=== PATIENT | male | born 1955 | race Caucasian/White ===

== ENCOUNTER 2022-03-13 13:50 | Inpatient (IN) | payer MEDICARE, OTHER, SELFPAY ==
[2022-03-13] VITALS (30 sets, daily range): BP systolic 84–134; BP diastolic 50–89; PULSE 70–164; RESP 18–30; TEMP 36.3–36.9; O2SAT 92–98
--- NOTE | 2022-03-13 14:29 | ECG_ITS ---
[facility] Test Date: 2022-03-13 Pat Name: Julian Lundy Department: Room: Gender: Male Tissue Rewinder: : 1955 Requested By: Semaj Munoz Order Number: [id number] Cherry MD: Sander Penaloza M.D. Measurements Intervals [place] Rate: 141 P: [place]: QRS: 41 QRSD: 94 T: 19 QT: 291 QTc: 446 Interpretive Statements ATRIAL FIBRILLATION WITH RAPID VENTRICULAR RESPONSE NONSPECIFIC ST & T-WAVE ABNORMALITY ABNORMAL RHYTHM ECG No previous ECG available for comparison Electronically Signed On 03-13-2022 23:41:06 CDT by Sander Penaloza M.D. [id number] f
--- NOTE | 2022-03-13 14:29 | XR_ITS ---
WS: [id number] Portable AP supine chest, 03/13/2022 Clinical Data: dyspnea/cough Comparison: None. Findings: No nodules, masses or effusions are seen. The heart is normal. The pulmonary vascularity is not increased. No pneumonia or pneumothorax is seen. The aortic arch and descending thoracic aorta s how tortuosity. Monitor leads are on the chest wall. XR/XR chest 1V portable [id number] Impression: Atherosclerosis.
[2022-03-13] MEDS: sodium chloride 0.9% 1,000 ML 999 ML IV ×3 (14:30→20:51)
[2022-03-13] MEDS: esmolol drip 2,500 MG/250 ML PREMIX 32.66 MG IV (14:32)
--- NOTE | 2022-03-13 14:40 | W.ED.DIZZY ---
HPI - Dizziness General: Chief Complaint: Dizziness Stated Complaint: DI, Vomitting, chills Time Seen by Provider: 03/13/22 14:28 Source: patient Mode of arrival: ambulatory Limitations: no limitations History of Present Illness: HPI Narrative: 58-year-old male presents emergency room with complaints of lightheadedness dizziness vomiting and chills for the last several days. Said some diarrhea as well. Symptoms began 3 to 4 days ago he has not actually checked his temperature he is on an oral chemotherapy agent MD elicited complaint: dizziness and lightheadedness Onset (ago): day(s) (3-4) Timing: gradual onset Severity: moderate Description: lightheadedness History of similar symptoms: Yes Exacerbating factors: movement/ambulation, change in body position and exertion Relieving factors: rest and lying down Associated symptoms: Reports chills, malaise and palpitations; Denies change in hearing, chest pain, cough, diaphoresis, ear discharge, ear pressure, fevers/chills, headache(s), nausea, nasal congestion, rash, short of breath, syncope, tinnitus, vomiting or weakness Associated neuro symptoms: Deny confusion, difficulty speaking, dysphagia, diplopia, extremity weakness, facial numbness, facial weakness, gait changes, numbness in extremities or visual changes Review of Systems Const: Reports: fever(s), chills, fatigue and malaise; Denies: diaphoresis ENMT: Denies: ear discharge, change in hearing, tinnitus or nasal congestion Card: Reports: palpitations; Denies: chest pain or syncope Resp: Denies: dyspnea, productive cough or non-productive cough GI: Reports: diarrhea; Denies: abdominal pain, nausea, vomiting, dysphagia or hematochezia : Denies: flank pain, difficulty urinating, dysuria, urinary frequency or urinary urgency Skin/Breast: Denies: rash or pruritus Neuro: Denies: headache(s), numbness in extremities or confusion PFSH ED PFSH: Medical History Alcohol abuse 1 glass of whiskey daily CLL (chronic lymphocytic leukemia) Neutropenia Physical Exam Const: COMMON NORMALS: no acute distress GENERAL APPEARANCE: cooperative and comfortable ORIENTATION/CONSCIOUSNESS: Yes awake, Yes oriented to person, Yes oriented to place and Yes oriented to time HENMT: COMMON NORMALS: normocephalic, atraumatic and hearing grossly normal bilaterally HEAD & SCALP: normocephalic and atraumatic Resp: COMMON NORMALS: normal respiratory effort, No retractions, No use of accessory muscles and clear to auscultation bilaterally AUSCULTATION: clear to auscultation bilaterally Cardio: RATE: tachycardic RHYTHM: abnormal rhythm irregularly irregular GI: COMMON NORMALS: Soft to palpation and No hepatosplenomegaly present AUSCULTATION: Yes normoactive bowel sounds PALPATION: Yes Soft to palpation, No Tenderness to palpation present (GI), No Guarding due to palpation present (GI) and Yes No hepatosplenomegaly present Extremity: COMMON NORMALS: normal to inspection, capillary refill normal, no clubbing, cyanosis or edema, no calf tenderness and no pedal edema Neuro: SENSORIUM/ORIENTATION: Yes oriented to person, Yes oriented to place and Yes oriented to time Skin: COMMON NORMALS: no rashes or lesions noted GENERAL SKIN EXAM: no rashes or lesions noted Course Vital Signs: Vital signs: Vital Signs Temperature 97.6 F 03/17/22 14:31 Pulse Rate 96 03/17/22 14:31 Respiratory Rate 16 03/17/22 14:31 Blood Pressure 114/79 03/17/22 14:31 Pulse Oximetry 96 03/17/22 14:31 MDM - Dizziness Medical Decision Making Patient with A. fib with RVR. He was given a liter of fluids and started on esmolol drip we had been concerned we may had to cardiovert him but he improved and did not require cardioversion. Patient is tolerating well at this time with heart rates in the 110-130 range. We will go ahead and admit discussed Dr. Gavin orders written Medical Records I reviewed the patient's medical records. Lab Data I reviewed the patient's lab results. : 03/17/22 04:05 03/17/22 04:05 Radiology Impressions Chest X-Ray 03/13/22 14:29 Impression: Atherosclerosis. Abdomen/Pelvis CT 03/13/22 17:20 IMPRESSION: 1. No acute abdominal findings. Cholelithiasis. 2. Splenomegaly. Probable hepatic steatosis. 3. Suspicion of areas of ankylosis of the SI joints, therefore clinical correlation recommended as to the likelihood of ankylosing spondylitis. Other findings detailed above. Cholangiopancreatography MRI 03/14/22 13:00 Impression: 1. Dense cholelithiasis is unchanged. No evidence of acute cholecystitis. No significant gallbladder wall thickening or pericholecystic fluid. 2. Normal common bile duct. No intrahepatic biliary ductal dilatation. No visualized choledocholithiasis. 3. No evidence of pancreatic head mass or lesion. 4. Hepatomegaly with diffuse fatty infiltration. Splenomegaly. 5. No other significant findings. Liver Ultrasound 03/14/22 17:24 IMPRESSION: 1. Cholelithiasis and a small amount of gallbladder sludge. 2. Clinical setting this may represent acute cholecystitis. On the recent CT of 03/13/2022 there was no adjacent inflammation suggesting acute cholecystitis. 3. No bile duct dilatation. 4. Moderate hepatomegaly and hepatic steatosis. Laboratory Results WBC 1.9 10^3/uL (4.0-10.0) L 03/13/22 14:25 RBC 4.19 10^6/uL (4.1-5.3) 03/13/22 14:25 Hgb 12.6 g/dL (11.7-16.6) 03/13/22 14:25 Hct 37.0 % (42.0-52.0) L 03/13/22 14:25 MCV 88.3 fl (80-94) 03/13/22 14:25 MCH 30.1 pg (28.0-34.0) 03/13/22 14:25 MCHC 34.1 g/dL (30.0-36.0) 03/13/22 14:25 RDW 14.1 % (12.1-15.1) 03/13/22 14:25 Plt Count 70 10^3/cmm (130-400) L 03/13/22 14:25 MPV 12.3 fL (7.4-10.4) H 03/13/22 14:25 Lymph % (Auto) Not Reportable 03/13/22 14:25 Upson % (Auto) Not Reportable 03/13/22 14:25 Lymph # (Auto) Not Reportable 03/13/22 14:25 Upson # (Auto) Not Reportable 03/13/22 14:25 Total Counted 100 (0-100) 03/13/22 14:25 Atypical Lymphs % Not Reportable 03/13/22 14:25 Absolute Neutrophils 1.5 10^3/cmm (1.4-6.5) 03/13/22 14:25 Segmented Neutrophils 47 % 03/13/22 14:25 Abs Segm Neuts (Man) 0.9 10/cmm (1.6-7.1) L 03/13/22 14:25 Band Neutrophils 31.0 % 03/13/22 14:25 Abs Band Neuts (Man) 0.6 10^3/cmm (0.0-1.2) 03/13/22 14:25 Lymphocytes (Manual) 10 % 03/13/22 14:25 Monocytes (Manual) 12.0 % 03/13/22 14:25 Absolute Monocytes 0.2 10^3/cmm (0.1-0.6) 03/13/22 14:25 Eosinophils (Manual) 0 % 03/13/22 14:25 Absolute Eosinophils 0.0 10^3/cmm (0.0-0.7) 03/13/22 14:25 Basophils (Manual) Not Reportable 03/13/22 14:25 Toxic Vacuolation Trace 03/13/22 14:25 Dohle Bodies 1+ H 03/13/22 14:25 Platelet Estimate Decreased (Normal) 03/13/22 14:25 Giant Platelets 1+ H 03/13/22 14:25 Macrocytosis 1+ H 03/13/22 14:25 Sodium 141 mmol/L (136-145) 03/13/22 14:25 Potassium 3.8 mmol/L (3.5-5.1) 03/13/22 14:25 Chloride 105 mmol/L (98-107) 03/13/22 14:25 Carbon Dioxide 19 mmol/L (22-29) L 03/13/22 14:25 Anion Gap 20.8 (5-19) H 03/13/22 14:25 BUN 22 mg/dL (8-23) 03/13/22 14:25 Creatinine 2.1 mg/dL (0.7-1.2) H 03/13/22 14:25 GFR Calculation 31.6 mL/min (90-130) L 03/13/22 14:25 Glucose 176 mg/dL (65-115) H 03/13/22 14:25 Calculated Osmolality 300 mOsm/kg (285-295) H 03/13/22 14:25 Lactic Acid 2.3 mmol/L (0.5-2.2) H 03/13/22 16:05 Calcium 7.9 mg/dL (8.5-10.5) L 03/13/22 14:25 Magnesium 2.0 mg/dL (1.7-2.3) 03/13/22 14:25 Total Bilirubin 4.3 mg/dL (0.15-1.2) H 03/13/22 14:25 AST 64 U/L (0-40) H 03/13/22 14:25 ALT 78 U/L (0-41) H 03/13/22 14:25 Alkaline Phosphatase 8 IU/L (40-130) L 03/13/22 14:25 Troponin T Baseline 47 ng/L (0-15) H 03/13/22 14:25 Troponin T 120 Minute 33.46 ng/L (0-15) H 03/13/22 16:05 Delta Troponin T -13.54 ABS# (0-10) L 03/13/22 16:05 Total Protein 5.7 g/dL (6.6-8.7) L 03/13/22 14:25 Albumin 0.2 g/dL (3.5-5.2) L 03/13/22 14:25 Globulin 5.5 g/dL (1.3-4.6) H 03/13/22 14:25 Lipase 31 U/L (13-60) 03/13/22 14:25 Discharge Plan Discharge Patient Disposition: Admitted As Inpatient Admit Provider: Db Gavin Clinical Impression: Atrial fibrillation with rapid ventricular response, Leukopenia, ALLY (acute kidney injury), Transaminitis, Diarrhea, Dehydration, Chronic lymphocytic leukemia Condition: Stable Discharge Diet: Usual diet and As Directed Discharge Activity: Resume usual activity and Increase activity as tolerated Coding Level of Care Code ED Small Machine Bindery Operator for Talya Hinton
[2022-03-13 15:03] LABS: Hemoglobin 12.6 g/dL (11.7-16.6); Mean Corpuscular HGB Conc 34.1 g/dL (30.0-36.0); Mean Corpuscular Hemoglobin 30.1 pg (28.0-34.0); Mean Corpuscular Volume 88.3 fl (80-94); Mean Platelet Volume 12.3 fL (7.4-10.4); Platelet Count 70 10^3/cmm (130-400); Red Blood Count 4.19 10^6/uL (4.1-5.3); Red Cell Distribution Width 14.1 % (12.1-15.1); White Blood Count 1.9 10^3/uL (4.0-10.0)
[2022-03-13 15:27] LABS: Slide Review Slide Review Perform; Troponin(5th) Baseline 47 ng/L (0-15)
[2022-03-13 15:28] LABS: Blood Urea Nitrogen 22 mg/dL (8-23); Lipase 31 U/L (13-60)
[2022-03-13 15:35] LABS: Chloride 105 mmol/L (98-107); Potassium 3.8 mmol/L (3.5-5.1); Sodium 141 mmol/L (136-145)
[2022-03-13 15:38] LABS: Absolute Neutrophil 1.5 10^3/cmm (1.4-6.5); Absolute Segmented Neutrophil 0.9 10/cmm (1.6-7.1); Band Neutrophils Absolute 0.6 10^3/cmm (0.0-1.2); Dohle Bodies 1+; Eosinophils 0 %; Giant Platelets 1+; Lymphocytes 10 %; Macrocytosis 1+; Monocytes Absolute 0.2 10^3/cmm (0.1-0.6); Platelet Estimate Decreased (Normal); Segmented Neutrophils 47 %; Total Cells Counted 100 (0-100); Toxic Vacuolation TRACE
[2022-03-13] MEDS: ondansetron 2 mg/ML SDV 2 mL 4 MG IVP (15:44)
[2022-03-13 16:24] LABS: Anion Gap 20.8 (5-19); Carbon Dioxide 19 mmol/L (22-29); Glomerular Filtration Rate 31.6 mL/min (90-130); Glucose 176 mg/dL (65-115); Osmolality Calculated 300 mOsm/kg (285-295)
[2022-03-13 16:25] LABS: Alanine Aminotransferase 78 U/L (0-41); Aspartate Amino Transferase 64 U/L (0-40); Calcium 7.9 mg/dL (8.5-10.5); Total Bilirubin 4.3 mg/dL (0.15-1.2)
[2022-03-13 16:26] LABS: Albumin Level 0.2 g/dL (3.5-5.2); Globulin 5.5 g/dL (1.3-4.6); Total Protein 5.7 g/dL (6.6-8.7)
[2022-03-13 16:27] LABS: Alkaline Phosphatase 8 IU/L (40-130)
--- NOTE | 2022-03-13 16:29 | ECG_ITS ---
[facility] Test Date: 2022-03-13 Pat Name: Julian Lundy Department: Room: ICU11 Gender: Male Location And Measurement Technician: : 1955 Requested By: Semaj Munoz Order Number: [id number] Cherry MD: Sander Penaloza M.D. Measurements Intervals [place] Rate: 131 P: [place]: QRS: 41 QRSD: 94 T: 21 QT: 300 QTc: 443 Interpretive Statements ATRIAL FIBRILLATION WITH RAPID VENTRICULAR RESPONSE NONSPECIFIC ST & T-WAVE ABNORMALITY ABNORMAL RHYTHM ECG Compared to ECG 03/13/2022 14:11:38 No significant changes Electronically Signed On 03-14-2022 22:48:02 CDT by Sander Penaloza M.D. [id number]
[2022-03-13 16:43] LABS: Lactic Sepsis W/Reflex 2.3 mmol/L (0.5-2.2)
[2022-03-13 16:46] LABS: Troponin 5 2HR 33.46 ng/L (0-15)
--- NOTE | 2022-03-13 17:20 | CTR_ITS ---
PROCEDURE INFORMATION: Exam: CT Abdomen And Pelvis Without Contrast Exam date and time: 03/13/2022 6:22 PM Age: 66 years old Clinical indication: Nausea and vomiting; Abdominal pain; Generalized; Patient HX: C/O diffuse abd pain with n/v/d. History of liver failure and leukemia. Currently on po chemotherapy. ; Additional info: Dale, diarrhea, liver faliure TECHNIQUE: Imaging protocol: Computed tomography of the abdomen and pelvis without contrast. Radiation optimization: All CT scans at this facility use at least one of these dose optimization techniques: automated exposure control; mA and/or kV adjustment per patient size (includes targeted exams where dose is matched to clinical indication); or iterative reconstruction. COMPARISON: CR XR chest 1V portable [id number] 03/13/2022 2:51 PM RADIATION DOSE METRICS: Total DLP (mGy-cm): 1431.53 FINDINGS: Lungs: Stranding in the lung bases suggesting mild atelectasis although areas of scarring not excluded. Very small calcified granuloma in the right lower lobe. Heart: Bilateral coronary artery calcifications. No cardiomegaly or pericardial effusion. Liver: Probable hepatic steatosis. No obvious liver mass. Gallbladder and bile ducts: Two stones with densely calcified rims in the gallbladder, the larger measuring 3.6 x 2.4 cm. No gallbladder wall thickening or biliary ductal dilatation. Pancreas: Fatty infiltration of the pancreas. No pancreatic ductal dilatation or haziness in the fat around the pancreas. Spleen: Splenomegaly. Adrenal glands: No adrenal mass. Kidneys and ureters: No hydronephrosis or apparent renal mass. Stomach and bowel: No bowel obstruction. Nondistended stomach. No suggestion of wall thickening. Appendix: Several small high density foci in the appendix, likely related to similar high density foci in the cecum and other parts of the colon. No appendicitis. Intraperitoneal space: No free air or fluid. Vasculature: No aortic aneurysm. Atherosclerosis. Lymph nodes: Calcified lymph nodes in the right hilum. No enlarged lymph nodes. Urinary bladder: Unremarkable as visualized. Reproductive: Slight prostatic prominence. Bones/joints: Old compression fractures. Degeneration of several discs. Geode in the anterior right acetabulum. Bridging spurs crossing both anterior SI joints and suspicion of small areas of ankylosis of these joints. Soft tissues: Small bilateral inguinal hernias and a minimal periumbilical hernia containing fat. CT/CT abdomen pelvis wo con [id number] IMPRESSION: 1. No acute abdominal findings. Cholelithiasis. 2. Splenomegaly. Probable hepatic steatosis. 3. Suspicion of areas of ankylosis of the SI joints, therefore clinical correlation recommended as to the likelihood of ankylosing spondylitis. Other findings detailed above.
--- NOTE | 2022-03-13 17:21 | PM.HP ---
Providers/Chief Complaint Chief Complaint: DI, Vomitting, chills History of Present Illness Julian Lundy Jr is a 66 year old male who is traveling in from [place] and was camping for last 3 days at [facility] [employer]. Patient has past medical history of CLL on oral chemotherapy with umbralisib and Venclexta oralpills daily. As per the patient when he reached the [place] he started having explosive multiple frequent amount of diarrhea along with gradual weakness and chills. When they reached back to [place] today he came directly to the ER because of worsening weakness along with dizziness. In the ER he was found to be in atrial fibrillation with rapid ventricular response with heart rate running in 140s to 150s. He was found to be in systolic blood pressure of 60 mmHg. He was given 1 L bolus of IV fluids and plan was to cardiovert but as his blood pressures improved he was started on esmolol drip. Patient states he has a history of intermittent atrial fibrillation in the past for which he received ablation and since then he has not been on any rhythm control or anticoagulation. He states his baseline platelet count is around 110-300,000 with white count of around 2-4. He declined of having any knowledge of ALLY on liver dysfunction. He denies of having any bleeding. Denies of any decline in urine output, chest pain, nausea, vomiting, recent sick contacts, known exposure to ticks. He has received modern a COVID-vaccine with overall 2 boosters. Last dose around 2 weeks ago. On examination patient's heart rate is running from 1 10-1 30, atrial fibrillation. He is on esmolol drip with systolic blood pressure of 101 mmHg. Review of Systems General: Reports: 10 or more systems reviewed and unremarkable except in HPI and below Const: Denies: fever(s), chills, body aches, change in appetite, change in weight, malaise, night sweats, diaphoresis, change in sleep pattern, daytime sleepiness or snoring Eyes: Denies: change in vision, blurry vision, photophobia, eye discomfort or eye discharge ENMT: Denies: throat pain, enlarged tonsils, hoarseness, mouth pain, oral sores, dry mouth, tinnitus, nasal congestion or post nasal drip Card: Denies: chest pain, palpitations, irregular heart rhythm, edema, swelling of feet/ankles, lightheadedness, syncope, pre-syncope, dyspnea on exertion, orthopnea, leg pain with exertion or acrocyanosis Resp: Denies: dyspnea, productive cough, non-productive cough, wheezing, stridor, pain on inspiration, change in phlegm color, hemoptysis or chest congestion GI: Denies: abdominal pain, nausea, vomiting, hematemesis, coffee ground emesis, dysphagia, heartburn, diarrhea, constipation, bloating, GI cramping, change in bowel habits, pain on defecation, hematochezia or melena : Denies: flank pain, difficulty urinating, dysuria, urinary frequency, urinary urgency, urinary hesitancy, urinary dribbling, difficulty starting urination, change in urine stream, nocturia or hematuria Musc: Denies: neck pain, back pain, extremity pain, joint pain, joint swelling, joint redness, joint stiffness or limited range of motion Neuro: Denies: headache(s), numbness in extremities, weakness in extremities, sensory changes, lack of coordination, difficulty walking, frequent falls, dizziness, vertigo, confusion, Slurred speech present, difficulty communicating thoughts or seizure-like activity Psych: Denies: anxiety, depression, mood swings, panic attacks, hopelessness or irritability Endo: Denies: polyuria, polydipsia, tired all the time, cold intolerance, excessive sweating, flushing or heat intolerance Nishant/Lymph: Denies: easy bruising or easy bleeding All/Imm: Denies: tongue swelling, facial swelling or acute wheezing Medications/Allergies Home Medications Medication Instructions Recorded Confirmed Last Taken Type acyclovir 800 mg tablet 800 mg PO Q12H 03/13/22 03/13/22 03/13/22 08:00 History amlodipine 5 mg tablet 5 mg PO [facility] 03/13/22 03/13/22 03/13/22 08:00 History aspirin 81 mg tablet,delayed 81 mg PO QA 03/13/22 03/13/22 03/13/22 History release atorvastatin 80 mg tablet 80 mg PO QA 03/13/22 03/13/22 03/13/22 History famotidine 40 mg tablet 40 mg PO QAM 03/13/22 03/13/22 03/13/22 08:00 History losartan 50 mg tablet 50 mg PO BEDTIME 03/13/22 03/13/22 03/12/22 History sulfamethoxazole 400 1 tab PO QAM 03/13/22 03/13/22 03/13/22 08:00 History mg-trimethoprim 80 mg tablet umbralisib 200 mg tablet 800 mg PO QAM 03/13/22 03/13/22 03/13/22 08:00 History venetoclax 100 mg tablet 400 mg PO BEDTIME 03/13/22 03/13/22 03/12/22 History (Venclexta) Allergies Allergy/AdvReac Type Severity Reaction Status Date / Time No Known Allergies Allergy Verified 03/13/22 14:05 PFSH Acute PFSH: Medical History (Updated 03/13/22 @ 20:48 by Db Gavin MD) CLL (chronic lymphocytic leukemia) Vitals/I&O/Wt Last Vital Signs Temp 97.3 F L 03/13/22 13:54 Pulse 124 H 03/13/22 15:01 Resp 29 H 03/13/22 15:01 BP 102/72 03/13/22 15:01 Pulse Ox 97 03/13/22 15:01 03/13/22 03/13/22 03/13/22 06:59 14:59 22:59 Intake Total 2063.687 / 2063.687 Balance 2063.687 / 2063.687 Weight last 48 hrs Weight 108.862 kg Physical Exam Narrative: General: No acute distress, AO x3, pallor prrsent, icterus present, dehydrated HEENT: PERRLA, pupils bilaterally equal and reactive Chest: Normal vesicular breath sounds, no added sounds, equal good air entry bilaterally CVS: S1-S2 irregularly irregular, tachycardia, no gallops, no rubs Abdomen: Soft, nontender, no organomegaly, bowel sounds present Neuro: No focal deficits, no facial deformity, AO x3, power 5/5 in all limbs Data : 03/14/22 05:29 03/14/22 05:29 Other Labs: Abnormal lab results 03/13/22 03/13/22 03/13/22 Range/Units 14:25 14:25 14:25 WBC 1.9 L (4.0-10.0) 10^3/uL RBC (4.1-5.3) 10^6/uL Hgb (11.7-16.6) g/dL Hct 37.0 L (42.0-52.0) % Plt Count 70 L (130-400) 10^3/cmm MPV 12.3 H (7.4-10.4) fL Neut # (Auto) (1.8-7.7) 10^3/uL Lymph # (Auto) (0.8-4.8) 10^3/uL Abs Segm Neuts (Man) 0.9 L (1.6-7.1) 10/cmm Dohle Bodies 1+ H Giant Platelets 1+ H Macrocytosis 1+ H PT (12.1-14.9) SECONDS Potassium (3.5-5.1) mmol/L Chloride (98-107) mmol/L Carbon Dioxide 19 L (22-29) mmol/L Anion Gap 20.8 H (5-19) Creatinine 2.1 H (0.7-1.2) mg/dL GFR Calculation 31.6 L (90-130) mL/min Glucose 176 H (65-115) mg/dL Calculated Osmolality 300 H (285-295) mOsm/kg Lactic Acid (0.5-2.2) mmol/L Calcium 7.9 L (8.5-10.5) mg/dL Phosphorus (2.5-4.5) mg/dL Iron (59-158) ug/dL Total Bilirubin 4.3 H (0.15-1.2) mg/dL Direct Bilirubin (0.00-0.30) mg/dL GGT (8-61) U/L AST 64 H (0-40) U/L ALT 78 H (0-41) U/L Alkaline Phosphatase 8 L (40-130) IU/L Troponin T Baseline 47 H (0-15) ng/L Troponin T 120 Minute (0-15) ng/L Delta Troponin T (0-10) ABS# Troponin T Hi Sens 6Hr (0-15) ng/L Troponin T Hi Sens 6Hr Delta (0-12) ng/L C-Reactive Protein (0.0-4.9) mg/L Total Protein 5.7 L (6.6-8.7) g/dL Albumin 0.2 L (3.5-5.2) g/dL Globulin 5.5 H (1.3-4.6) g/dL Triglycerides (0-150) mg/dL LDL Cholesterol, Calc (50-129) mg/dL Total VLDL Cholesterol (0-30) mg/dL HDL Cholesterol (60-100) mg/dL Procalcitonin (0-0.5) ng/mL Urine Appearance (CLEAR) Urine Protein (Negative) Urine Blood (Negative) Urine Bilirubin (Negative) Ur Leukocyte Esterase (Negative) Urine RBC (0-2) /hpf Urine WBC (0-5) /hpf Ur Squamous Epith Cells (0-5) /hpf Hyaline Casts /lpf Coarse Granular Casts /lpf Salicylates (3-10) mg/dL Acetaminophen (10-30) ug/mL Hep Bs Antibody (11.5-1000) 03/13/22 03/13/22 03/13/22 Range/Units 16:05 16:05 17:45 WBC (4.0-10.0) 10^3/uL RBC (4.1-5.3) 10^6/uL Hgb (11.7-16.6) g/dL Hct (42.0-52.0) % Plt Count (130-400) 10^3/cmm MPV (7.4-10.4) fL Neut # (Auto) (1.8-7.7) 10^3/uL Lymph # (Auto) (0.8-4.8) 10^3/uL Abs Segm Neuts (Man) (1.6-7.1) 10/cmm Dohle Bodies Giant Platelets Macrocytosis PT (12.1-14.9) SECONDS Potassium (3.5-5.1) mmol/L Chloride 109 H (98-107) mmol/L Carbon Dioxide 20 L (22-29) mmol/L Anion Gap (5-19) Creatinine 1.6 H (0.7-1.2) mg/dL GFR Calculation 43.2 L (90-130) mL/min Glucose 152 H (65-115) mg/dL Calculated Osmolality 300 H (285-295) mOsm/kg Lactic Acid 2.3 H (0.5-2.2) mmol/L Calcium 7.7 L (8.5-10.5) mg/dL Phosphorus (2.5-4.5) mg/dL Iron 41 L (59-158) ug/dL Total Bilirubin 3.9 H (0.15-1.2) mg/dL Direct Bilirubin (0.00-0.30) mg/dL GGT (8-61) U/L AST 65 H (0-40) U/L ALT 78 H (0-41) U/L Alkaline Phosphatase (40-130) IU/L Troponin T Baseline (0-15) ng/L Troponin T 120 Minute 33.46 H (0-15) ng/L Delta Troponin T -13.54 L (0-10) ABS# Troponin T Hi Sens 6Hr (0-15) ng/L Troponin T Hi Sens 6Hr Delta (0-12) ng/L C-Reactive Protein (0.0-4.9) mg/L Total Protein 5.6 L (6.6-8.7) g/dL Albumin (3.5-5.2) g/dL Globulin (1.3-4.6) g/dL Triglycerides (0-150) mg/dL LDL Cholesterol, Calc (50-129) mg/dL Total VLDL Cholesterol (0-30) mg/dL HDL Cholesterol (60-100) mg/dL Procalcitonin 1.04 H (0-0.5) ng/mL Urine Appearance (CLEAR) Urine Protein (Negative) Urine Blood (Negative) Urine Bilirubin (Negative) Ur Leukocyte Esterase (Negative) Urine RBC (0-2) /hpf Urine WBC (0-5) /hpf Ur Squamous Epith Cells (0-5) /hpf Hyaline Casts /lpf Coarse Granular Casts /lpf Salicylates < 0.3 L (3-10) mg/dL Acetaminophen < 5.0 L (10-30) ug/mL Hep Bs Antibody (11.5-1000) 03/13/22 03/13/22 03/13/22 Range/Units 17:45 17:45 18:50 WBC (4.0-10.0) 10^3/uL RBC (4.1-5.3) 10^6/uL Hgb (11.7-16.6) g/dL Hct (42.0-52.0) % Plt Count (130-400) 10^3/cmm MPV (7.4-10.4) fL Neut # (Auto) (1.8-7.7) 10^3/uL Lymph # (Auto) (0.8-4.8) 10^3/uL Abs Segm Neuts (Man) (1.6-7.1) 10/cmm Dohle Bodies Giant Platelets Macrocytosis PT 15.00 H (12.1-14.9) SECONDS Potassium (3.5-5.1) mmol/L Chloride (98-107) mmol/L Carbon Dioxide (22-29) mmol/L Anion Gap (5-19) Creatinine (0.7-1.2) mg/dL GFR Calculation (90-130) mL/min Glucose (65-115) mg/dL Calculated Osmolality (285-295) mOsm/kg Lactic Acid (0.5-2.2) mmol/L Calcium (8.5-10.5) mg/dL Phosphorus (2.5-4.5) mg/dL Iron (59-158) ug/dL Total Bilirubin (0.15-1.2) mg/dL Direct Bilirubin (0.00-0.30) mg/dL GGT (8-61) U/L AST (0-40) U/L ALT (0-41) U/L Alkaline Phosphatase (40-130) IU/L Troponin T Baseline (0-15) ng/L Troponin T 120 Minute (0-15) ng/L Delta Troponin T (0-10) ABS# Troponin T Hi Sens 6Hr (0-15) ng/L Troponin T Hi Sens 6Hr Delta (0-12) ng/L C-Reactive Protein 109.4 H (0.0-4.9) mg/L Total Protein (6.6-8.7) g/dL Albumin (3.5-5.2) g/dL Globulin (1.3-4.6) g/dL Triglycerides (0-150) mg/dL LDL Cholesterol, Calc (50-129) mg/dL Total VLDL Cholesterol (0-30) mg/dL HDL Cholesterol (60-100) mg/dL Procalcitonin (0-0.5) ng/mL Urine Appearance (CLEAR) Urine Protein (Negative) Urine Blood (Negative) Urine Bilirubin (Negative) Ur Leukocyte Esterase (Negative) Urine RBC (0-2) /hpf Urine WBC (0-5) /hpf Ur Squamous Epith Cells (0-5) /hpf Hyaline Casts /lpf Coarse Granular Casts /lpf Salicylates (3-10) mg/dL Acetaminophen (10-30) ug/mL Hep Bs Antibody 3.5 L (11.5-1000) Micro: Microbiology 03/13/22 16:05 Blood Culture - Preliminary Blood SPECIMEN COLLECTED 03/13/22 16:09 Blood Culture - Preliminary Blood SPECIMEN COLLECTED A&P Assessment and plan (1) Sepsis: Status: Acute (2) Atrial fibrillation with rapid ventricular response: Status: Acute (3) ALLY (acute kidney injury): Status: Acute (4) Liver failure: Status: Acute (5) Diarrhea: Status: Acute (6) Dehydration: Status: Acute (7) Shock: Status: Acute (8) Leukopenia: Status: Acute (9) Thrombocytopenia: Status: Acute (10) CLL (chronic lymphocytic leukemia): Status: Acute Plan 66-year-old gentleman past medical history of CLL on oral chemotherapy presents and hypotension, sepsis secondary to diarrhea in atrial fibrillation with rapid ventricular response found to be in acute kidney injury, liver injury. Sepsis: Present on admission. Ruled in because of tachycardia, hypotension on admission, endorgan damage with ALLY and liver dysfunction. Keep mean artery pressure over 65. IV hydration with half NS@100 cc/h after 1 L bolus. Patient already received 1 L bolus in the ER. Secondary to diarrhea: Patient is immunocompromised. Check stool studies, blood culture, procalcitonin, MRSA swab, urinalysis, urine culture. For now start patient on vancomycin, cefepime, Flagyl as per creatinine clearance. Will de-escalate as per culture sensitivities. This will cover for parasitic infection versus amoebic infection as well. Acute kidney injury: Secondary to dehydration and sepsis along with use of nephrotoxic medications including acyclovir, Bactrim,umbrasilib. Medical reconciliation done for nephrotoxic drugs. Check urine studies, urine lites, urine creatinine, urine eosinophils, UA. Strict input output charting, daily weights. Monitor BMP daily for now. Atrial fibrillation with rapid ventricular response: Most likely in setting of dehydration and sepsis. Stop esmolol drip as patient's blood pressure is borderline. Given ongoing ALLY, borderline blood pressures the options are very limited. Even though patient has liver dysfunction for now we will start on amiodarone drip after 150 mg bolus. My suspicion is that once patient is hydrated atrial fibrillation should settle down. Hold off on anticoagulation given ongoing thrombocytopenia. Echocardiogram once heart rate is less than 100 Acute liver dysfunction: Cannot rule out liver failure. Most likely secondary to sepsis, dehydration and the chemotherapy oral pills. Monitor daily. GI soft diet. Check INR, hepatitis panel, HIV, liver ultrasound. Check tick panel given the fact the patient was camping prior to start of symptoms. History of CLL: Takes oral chemotherapy. Thrombocytopenia Leukopenia without neutropenia Guarded prognosis. Analgesia: Tylenol 325 every 8 hourly, morphine 1 mg every 4 hours as needed Glycemic control: Not needed Nutrition: GI soft diet CODE STATUS: Full code PUD prophylaxis: Pepcid DVT prophylaxis: SCDs for DVT prophylaxis, hold off from medical prophylaxis given thrombocytopenia Admit to ICU. Attestations Medical Necessity Statement*: Admission for more than 2 midnights for management of atrial fibrillation with rapid ventricular response, liver dysfunction, ALLY, sepsis with shock in a patient who is immunocompromised. The high probability of a clinically significant, sudden or life threatening deterioration of the patient's [cardiac, renal, GI, ID system(s) required my full and direct attention, intervention and personal management. The critical care time is as shown. This time is in addition to time spent performing any reported procedures but includes the following: [x] Data and vital sign review and interpretation [x] Patient assessment, examination and intervention [x] Documentation [x] Medication orders and management Critical Care Time: Critical care time 90 minutes Coding Level of Care Code Acute Campus Supervisor for [facility] Medical Decision Making High Complexity Diagnoses Atrial fibrillation with rapid ventricular response I48.91 ALLY (acute kidney injury) N17.9 Liver failure K72.90 Diarrhea R19.7 CLL (chronic lymphocytic leukemia) C91.10 Dehydration E86.0 Shock R57.9 Leukopenia D72.819 Thrombocytopenia D69.6 Sepsis A41.9
[2022-03-13 18:01] LABS: Reflex Lactate Order REFLEX LACTIC ORDERD
[2022-03-13 18:26] LABS: INR 1.15 (0.8-1.2)
[2022-03-13 18:53] LABS: HIV 1 & 2 Antibody Non-Reactive (Non-Reactiv); HIV 1 & 2 Antigen Non-Reactive (Non-Reactiv)
[2022-03-13 19:32] LABS: Procalcitonin 1.04 ng/mL (0-0.5); Thyroid Stimulating Hormone 3.08 uIU/mL (0.27-4.20); Vitamin B12 446 pg/mL (232-1245)
[2022-03-13 19:44] LABS: Alanine Aminotransferase 78 U/L (0-41); Albumin Level 3.6 g/dL (3.5-5.2); Alkaline Phosphatase 115 IU/L (40-130); Aspartate Amino Transferase 65 U/L (0-40); Blood Urea Nitrogen 22 mg/dL (8-23); Calcium 7.7 mg/dL (8.5-10.5); Carbon Dioxide 20 mmol/L (22-29); Chloride 109 mmol/L (98-107); Glomerular Filtration Rate 43.2 mL/min (90-130); Glucose 152 mg/dL (65-115); Iron 41 ug/dL (59-158); Osmolality Calculated 300 mOsm/kg (285-295); Percent Saturation 21.9 % (20-50); Sodium 142 mmol/L (136-145); Total Bilirubin 3.9 mg/dL (0.15-1.2); Total Iron Binding Capacity 187 mcg/dl; Total Protein 5.6 g/dL (6.6-8.7); Unsaturated Iron Binding 146 ug/dL (112-347)
[2022-03-13 19:51] LABS: SARS Covid-2 Antigen Negative (Negative)
[2022-03-13 20:00] LABS: Acetaminophen < 5.0 ug/mL (10-30); Alcohol Level < 10 mg/dL (0-10); Salicylate < 0.3 mg/dL (3-10)
[2022-03-13 20:03] LABS: Anion Gap 16.6 (5-19); Potassium 3.6 mmol/L (3.5-5.1)
[2022-03-13] MEDS: esmolol drip 2,500 MG/250 ML PREMIX 48.99 MG IV (20:07)
--- NOTE | 2022-03-13 20:20 | PC.NURSE ---
Physician Communication Patient's flagyl, cefepime, famotidine, and NS fluid bolus medications not administered in ED; additionally, Esmolol and amiodarone both ordered. Dr. Shah contacted for clarification of orders. Telephone orders received to discontinue esmolol drip, give amiodarone bolus 150 mg once, start amiodarone drip per protocol following bolus, discontinue the NS 3,265 ml bolus order and replace it with a 1 liter NS bolus to be administered now, administer flagyl and famotidine, and retime cefepime . Dr. Gavin called to verify orders placed in ED. Dr. Gavin verified discontinuation of esmolol and initiation of amiodarone with a loading dose, and the administration of a 1 liter bolus of NS. Furthermore, a telephone order received to start 1/2 NS at 100 ml/hr following NS bolus received. See MAR for medication administration.
--- NOTE | 2022-03-13 20:29 | ECG_ITS ---
[facility] Test Date: 2022-03-13 Pat Name: Julian Lunyd Department: Room: ICU11 Gender: Male Clinical Admissions Manager: : [id number] Requested By: Semaj Munoz Order Number: [id number] Cherry MD: Sander Penaloza M.D. Measurements Intervals [place] Rate: 138 P: SC: QRS: 22 QRSD: 94 T: 21 QT: 272 QTc: 412 Interpretive Statements ATRIAL FIBRILLATION WITH RAPID VENTRICULAR RESPONSE WITH ABERRANT CONDUCTION OR VENTRICULAR PREMATURE COMPLEXES NONSPECIFIC ST & T-WAVE ABNORMALITY ABNORMAL RHYTHM ECG Compared to ECG 03/13/2022 18:56:09 Ventricular premature complex(es) now present Aberrant conduction of supraventricular beat(s) now present T-wave abnormality still present The above in the part of the [id number] on a position of life in the Electronically Signed On 03-14-2022 22:49:09 CDT by Sander Penaloza M.D. [email or web address]
[2022-03-13] MEDS: metroNIDAZOLE IV 500 MG/100 ML PREMIX 100 MG IV (20:31)
[2022-03-13] MEDS: famotidine 20 mg/2 mL INJ IVP (20:37)
[2022-03-13] MEDS: vancomycin 1,250 MG/250 ML PIGGYBACK 250 MG IV (20:39)
[2022-03-13 21:15] LABS: Troponin 5 6HR 26.64 ng/L (0-15)
[2022-03-13 21:18] LABS: Amphetamines Screen Urine Negative (Negative); Barbiturates Screen Urine Negative (Negative); Benzodiazepines Screen Urine Negative (Negative); Cocaine Screen Urine Negative (Negative); Opiate Screen Urine Negative (Negative); PCP Screen Urine Negative (Negative); THC Screen Urine Negative (Negative)
[2022-03-13 21:24] LABS: Urine Creatinine 207 mg/dL (39-259)
[2022-03-13 21:28] LABS: Add Urine Microscopic? YES; Amorphous Sediment Urine 3+ /hpf; Bacteria Urine TRACE /hpf; Bilirubin Urine 1+ (Negative); Blood Urine 2+ (Negative); Glucose Urine UA Norm (Normal); Hyaline Casts Urine 0-4 /lpf; Ketones Urine Negative (Negative); Leukocyte Esterase Urine Trace (Negative); Mucus Urine 2+ /hpf; Nitrate Urine Negative (Negative); Protein Urine 2+ (Negative); RBC Urine 0-4 /hpf (0-2); Squamous Epithelial Cell Urine 0-4 /hpf (0-5); Urine Appearance Hazy (CLEAR); Urine Color Dark Yellow (Yellow); Urobilinogen Urine Norm (Negative); WBC Urine 0-4 /hpf (0-5); pH Urine 5 (5-7)
[2022-03-13 21:29] LABS: Add Urine Culture? No; Coarse Granular Casts Urine 0-4 /lpf
[2022-03-13 21:32] LABS: Erythrocyte Sedimentation Rate 2 mm/hr (0-10)
[2022-03-13 21:33] LABS: Influenza A by IFA Negative (Negative); Influenza B by IFA Negative (Negative)
[2022-03-13 21:34] LABS: Folate Level > 20.0 ng/mL (4.5-32.2)
[2022-03-13 21:35] LABS: Potassium, Radom Urine 60 mmol/L; Urine Random Chloride 26 mmol/L; Urine Random Sodium 40 mmol/L
[2022-03-13] MEDS: cefepime 2,000 MG in sodium chloride 0.9% (plus) 50 ML 100 MG IV (21:39)
[2022-03-13 21:40] LABS: C Reactive Protein 109.4 mg/L (0.0-4.9)
[2022-03-13] MEDS: sodium chloride 0.45% 1,000 ML 100 ML IV (22:02)
[2022-03-13 22:20] LABS: Hepatitis A Antibody IgM Non-Reactive (Nonreactive); Hepatitis B Core AB, Total Non-Reactive (Nonreactive); Hepatitis B Surface AB 3.5 (11.5-1000); Hepatitis B Surface Antigen Non-Reactive (Nonreactive); Hepatitis C Virus Antibody Non-Reactive (Nonreactive)
[2022-03-14] VITALS (43 sets, daily range): BP systolic 89–150; BP diastolic 50–99; PULSE 92–156; RESP 18; TEMP 36.7–38.5; O2SAT 90–100; BMI 31.1
[2022-03-14 01:15] LABS: Eosinophil Urine No Eosinophils Seen; Urine Eosinophil Count 0 (0-0)
[2022-03-14] MEDS: metroNIDAZOLE IV 500 MG/100 ML PREMIX 100 MG IV ×3 (01:52→18:15)
--- NOTE | 2022-03-14 04:08 | PC.NURSE ---
Physician Communication Patient's HR ranging from 110s to 150s. Dr. Shah notified of amiodarone drip administering at 0.5 mg/min per protocol and recent increases in HR; verbal order received for 2.5 mg Metoprolol IVP Q6HR for HR >140. Medication administered per OCT.
[2022-03-14] MEDS: metoprolol tartrate 1 mg/1 mL SDV 5 mL 2.5 MG IVP ×2 (04:17→12:58)
[2022-03-14] MEDS: famotidine 20 mg/2 mL INJ IVP ×2 (04:18→16:32)
[2022-03-14 06:39] LABS: Basophils % 0.9 %; Hematocrit 32.1 % (42.0-52.0); Hemoglobin 11.3 g/dL (11.7-16.6); Lymphocytes # 0.2 10^3/uL (0.8-4.8); Lymphocytes % 15.8 %; Mean Corpuscular HGB Conc 35.2 g/dL (30.0-36.0); Mean Corpuscular Hemoglobin 29.7 pg (28.0-34.0); Mean Corpuscular Volume 84.5 fl (80-94); Mean Platelet Volume 11.9 fL (7.4-10.4); Monocytes # 0.2 10^3/uL (0.2-0.9); Monocytes % 13.2 %; Neutrophils % 69.2 %; Nucleated Red Blood Cells % 0 %; Platelet Count 51 10^3/cmm (130-400); Red Cell Distribution Width 13.8 % (12.1-15.1); White Blood Count 1.1 10^3/uL (4.0-10.0)
[2022-03-14 06:51] LABS: Alanine Aminotransferase 79 U/L (0-41); Albumin Level 3.3 g/dL (3.5-5.2); Alkaline Phosphatase 109 IU/L (40-130); Anion Gap 17.4 (5-19); Aspartate Amino Transferase 70 U/L (0-40); Blood Urea Nitrogen 19 mg/dL (8-23); Calcium 7.8 mg/dL (8.5-10.5); Carbon Dioxide 17 mmol/L (22-29); Chloride 110 mmol/L (98-107); Cholesterol 90 mg/dL (0-200); Glomerular Filtration Rate 60.2 mL/min (90-130); Glucose 139 mg/dL (65-115); HDL Cholesterol 25 mg/dL (60-100); LDL Cholesterol Calculated 31 mg/dL (50-129); Osmolality Calculated 297 mOsm/kg (285-295); Phosphorus 2.2 mg/dL (2.5-4.5); Potassium 3.4 mmol/L (3.5-5.1); Sodium 141 mmol/L (136-145); Total Bilirubin 3.9 mg/dL (0.15-1.2); Total Protein 5.3 g/dL (6.6-8.7); Triglycerides 172 mg/dL (0-150); VLDL Cholestrol Calculation 34 mg/dL (0-30)
[2022-03-14 07:04] LABS: Estmated Average Glucose 120; Hemoglobin A1C 5.8 % (4.0-6.0)
[2022-03-14 07:09] LABS: Slide Review Slide Review Perform
[2022-03-14 07:11] LABS: Neutrophils # 0.79 10^3/uL (1.8-7.7)
[2022-03-14] MEDS: metoprolol tartrate 25 mg Tablet PO ×2 (07:51→20:20)
[2022-03-14] MEDS: sodium chloride 0.45% 1,000 ML 100 ML IV (07:51)
[2022-03-14] MEDS: acetaminophen 325 mg Tablet 650 MG PO (07:51)
[2022-03-14] MEDS: cefepime 2,000 MG in sodium chloride 0.9% (plus) 50 ML 100 MG IV ×2 (08:47→20:20)
[2022-03-14 09:15] LABS: Total Bilirubin 3.9 mg/dL (0.15-1.2)
[2022-03-14 09:28] LABS: Gamma Glutamyl Transferase 67 U/L (8-61)
[2022-03-14] MEDS: sodium chloride 0.9% 500 ML 999 ML IV (09:32)
[2022-03-14] MEDS: potassium chloride ER 20 mEq Tablet 40 MEQ PO (09:35)
[2022-03-14] MEDS: doxycycline 100 mg Tablet PO ×2 (10:04→16:47)
[2022-03-14 10:32] LABS: Lactate (Lactic Acid level) 1.1 mmol/L (0.5-2.2)
[2022-03-14] MEDS: amiodarone 200 mg Tablet 400 MG PO (12:47)
--- NOTE | 2022-03-14 13:00 | MR_ITS ---
WS: [id number] MRI/MRCP OF THE ABDOMEN WITHOUT GADOLINIUM ENHANCEMENT TECHNIQUE: Thin and thick slab MRCP, Axial T2, Coronal MRCP, Axial Dual Echo, and Axial 2-D Fiesta imaging was obtained. Coronal 2-D Fiesta imaging. CLINICAL INFORMATION: possible acute cholecystitis, elevated bilirubin COMPARISON: Ultrasound liver March 14, 2022 FINDINGS: Some images degraded by breathing motion which somewhat limits examination. Hepatomegaly with diffuse fatty infiltration. No intra or extra hepatic biliary ductal dilatation. No rmal common bile duct. Portal vein and splenic vein appear patent. Tiny incidental hepatic cyst. Sple nomegaly. Dense cholelithiasis within the gallbladder. Large calculus within the gallbladder lumen measuring 2. 5 cm appears unchanged. Intraluminal sludge. No significant gallbladder wall thickening. No perichole cystic fluid. Common bile duct measures 6 mm. Normal tapering of the common bile duct distally. Pancreas is normal in appearance. No pancreatic masses. No hydronephrosis in RIGHT kidney. No abdomin al ascites. Normal caliber upper abdominal aorta. Adrenal glands are normal. Splenic artery calcifica tion. MR/MR MRCP [id number] Impression: 1. Dense cholelithiasis is unchanged. No evidence of acute cholecystitis. No s ignificant gallbladder wall thickening or pericholecystic fluid. 2. Normal common bile duct. No intrahepatic biliary ductal dilatation. No visu alized choledocholithiasis. 3. No evidence of pancreatic head mass or lesion. 4. Hepatomegaly with diffuse fatty infiltration. Splenomegaly. 5. No other significant findings.
[2022-03-14] MEDS: ondansetron 2 mg/ML SDV 2 mL 4 MG IVP (13:15)
--- NOTE | 2022-03-14 14:31 | P.PN_ITS ---
Subjective Subjective: Today morning on examination patient sitting at bedside. States he is feeling better. Continues to have episodes of explosive diarrhea. No stool sample sent yet. T-max since admission 101.3 Fahrenheit. Has remained blood pressure is better. MAP has remained over 65. Heart rate running in the 110s to 120s but occasionally going up to 140s as well. Continues to remain on amiodarone drip of 0.5. Vitals/I&O/Wt Last Vital Signs Temp 100.8 F H 03/14/22 12:30 Pulse 122 H 03/14/22 12:30 Resp 18 03/14/22 04:00 BP 121/99 03/14/22 12:30 Pulse Ox 95 03/14/22 12:30 03/13/22 03/14/22 03/14/22 22:59 06:59 14:59 Intake Total 4236.115 / 4236.115 804.445 / 5040.560 2728.277 / 2728.277 Output Total 260 / 260 Balance 3976.115 / 3976.115 804.445 / 4780.560 2728.277 / 2728.277 Weight last 48 hrs Weight 109.996 kg Weight 108.862 kg Weight 108.862 kg Physical Exam Narrative: General: No acute distress, AO x3, pallor present, icterus present, less dehydrated HEENT: PERRLA, pupils bilaterally equal and reactive Chest: Normal vesicular breath sounds, no added sounds, equal good air entry bilaterally CVS: S1-S2 irregularly irregular, tachycardia, no gallops, no rubs Abdomen: Soft, nontender, no organomegaly, bowel sounds present Neuro: No focal deficits, no facial deformity, AO x3, power 5/5 in all limbs Data : 03/14/22 05:29 03/14/22 05:29 Micro: Microbiology 03/13/22 11:17 Stool Lactoferrin - Final Stool Occult Blood (FIT) - Final 03/13/22 20:41 Bacterial Antigens - Final Urine Kidney 03/13/22 20:41 Legionella Urinary Antigen - Final Urine,Voided 03/13/22 16:05 Blood Culture - Preliminary Blood SPECIMEN COLLECTED 03/13/22 16:09 Blood Culture - Preliminary Blood SPECIMEN COLLECTED A&P Assessment and plan (1) Sepsis: Status: Acute (2) Atrial fibrillation with rapid ventricular response: Status: Acute (3) ALLY (acute kidney injury): Status: Acute (4) Liver failure: Status: Acute (5) Diarrhea: Status: Acute (6) Dehydration: Status: Acute (7) Shock: Status: Acute (8) Leukopenia: Status: Acute (9) Thrombocytopenia: Status: Acute (10) CLL (chronic lymphocytic leukemia): Status: Acute Plan 66-year-old gentleman past medical history of CLL on oral chemotherapy presents and hypotension, sepsis secondary to diarrhea in atrial fibrillation with rapid ventricular response found to be in acute kidney injury, liver injury. Sepsis: Present on admission. Ruled in because of tachycardia, hypotension on admission, endorgan damage with ALLY and liver dysfunction. Keep mean artery pressure over 65. Continue hydration with half NS at 30 cc/h. Add 50 mg of sodium bicarb to fluid given metabolic acidosis. Repeat lactate. Secondary to diarrhea: Patient is immunocompromised. Stool studies awaited, blood cultures so far negative. Urine Legionella, bacterial antigen negative. Pro-Tay elevated, MRSA swab negative. Continue with vancomycin, cefepime, Flagyl as per creatinine clearance. Will de-escalate as per culture sensitivities. This will cover for parasitic infection versus amoebic infection as well. For concern of tick related this disease even though unlikely given the episodes of diarrhea for now start on doxycycline 100 mg twice daily. Atrial fibrillation with rapid ventricular response: Most likely in setting of dehydration and sepsis. Continues to remain in rapid ventricular response. Continue with amiodarone drip. Start on metoprolol 25 mg twice daily. If uncontrolled can try IV Cardizem push. Given improvement in creatinine now can try digoxin load as well. Hold off on anticoagulation given ongoing thrombocytopenia. Echocardiogram once heart rate is less than 100 Acute liver dysfunction: Most likely secondary to sepsis, dehydration and the chemotherapy oral pills. Tylenol level, salicylate level within normal limits. INR normal, hepatitis panel, HIV negative. Liver ultrasound results appreciated. MELD score 12 improving from 18. Slightly improving but continues to have transaminitis and hyperbilirubinemia. Check total direct and indirect bilirubin levels, GGT. Check MRCP to rule out cholecystitis or obstruction. Acute kidney injury: Resolved. Secondary to dehydration and sepsis along with use of nephrotoxic medications including acyclovir, Bactrim,umbrasilib. Medical reconciliation done for nephrotoxic drugs. Strict input output charting, daily weights. Monitor BMP daily for now. History of CLL: Takes oral chemotherapy. Thrombocytopenia Leukopenia without neutropenia Guarded prognosis. Analgesia: Tylenol 325 every 8 hourly, morphine 1 mg every 4 hours as needed Glycemic control: Not needed Nutrition: GI soft diet CODE STATUS: Full code PUD prophylaxis: Pepcid DVT prophylaxis: SCDs for DVT prophylaxis, hold off from medical prophylaxis given thrombocytopenia Admit to ICU. Attestations Medical Necessity Statement*: Requires further hospitalization for management of sepsis secondary to diarrhea, atrial fibrillation with rapid ventricular response, acute liver injury in a patient with immunocompromise, on chemotherapy for CLL Critical Care Time: The high probability of a clinically significant, sudden or life threatening deterioration of the patient's [GI, cardiac, renal, ID system(s) required my full and direct attention, intervention and personal management. The critical care time is as shown. This time is in addition to time spent performing any reported procedures but includes the following: [x] Data and vital sign review and interpretation [x] Patient assessment, examination and intervention [x] Documentation [x] Medication orders and management Critical Care Time (min): 70 Coding Level of Care Code Acute Front Desk Host for g Fwd Diagnoses Sepsis A41.9 Atrial fibrillation with rapid ventricular response I48.91 ALLY (acute kidney injury) N17.9 Liver failure K72.90 Diarrhea R19.7 Dehydration E86.0 Shock R57.9 Leukopenia D72.819 Thrombocytopenia D69.6 CLL (chronic lymphocytic leukemia) C91.10
[2022-03-14] MEDS: vancomycin 1,250 MG/250 ML PIGGYBACK 250 MG IV (14:53)
[2022-03-14] MEDS: dilTIAZem 5 mg/mL SDV 5 mL 10 MG IVP (14:53)
[2022-03-14 15:28] LABS: Procalcitonin 0.82 ng/mL (0-0.5)
[2022-03-14 15:40] LABS: Creatine Phosphokinase 199 U/L (39-308)
[2022-03-14 16:29] LABS: Magnesium 1.8 mg/dL (1.7-2.3); Phosphorus 1.7 mg/dL (2.5-4.5)
--- NOTE | 2022-03-14 17:24 | US_ITS ---
WS: [id number] RIGHT UPPER QU[facility]RANT ULTRASOUND HISTORY: liver dysfunction COMPARISON: None available. Liver: 20.4 cm in length. Liver is enlarged and moderately heterogeneous with increased attenuation. No bile duct dilatation. Portal Vein: Normal hepatopetal flow with monophasic waveform. Gallbladder: Normally distended gallbladder. There is a large stone within the gallbladder lumen grisel uring 2.2 cm in diameter. Adjacent sludge is also identified. Focal area of mild wall thickening grisel ures 4 mm but there is no adjacent fluid. CBD: 0.6 cm Pancreas: Head and tail are poorly visualized. The body is normal. Right kidney: 10.3 cm in length. Normal size and echogenicity. No hydronephrosis or mass. Aorta and IVC: Unremarkable abdominal aorta and IVC. No ascites. US/US liver [id number] IMPRESSION: 1. Cholelithiasis and a small amount of gallbladder sludge. 2. Clinical setting this may represent acute cholecystitis. On the recent CT o f 03/13/2022 there was no adjacent inflammation suggesting acute cholecystitis. 3. No bile duct dilatation. 4. Moderate hepatomegaly and hepatic steatosis.
--- NOTE | 2022-03-14 18:01 | PC.NURSE ---
Pt resting in bed. AAOx4, remains in afib/flutter. Amio gtt infusing per orders. Cardizem IVP given, metoprolol IVP given and oral Amio given. Multiple episodes of liquid stool. Lab test negative for cdiff. Nuc med test in AM tomorrow. Will monitor.
[2022-03-14 18:03] LABS: Alanine Aminotransferase 71 U/L (0-41); Albumin Level 3.6 g/dL (3.5-5.2); Alkaline Phosphatase 101 IU/L (40-130); Anion Gap 16.8 (5-19); Aspartate Amino Transferase 63 U/L (0-40); Blood Urea Nitrogen 17 mg/dL (8-23); Calcium 7.9 mg/dL (8.5-10.5); Carbon Dioxide 19 mmol/L (22-29); Chloride 110 mmol/L (98-107); Globulin 1.8 g/dL (1.3-4.6); Glomerular Filtration Rate 66.6 mL/min (90-130); Glucose 140 mg/dL (65-115); Osmolality Calculated 298 mOsm/kg (285-295); Potassium 3.8 mmol/L (3.5-5.1); Sodium 142 mmol/L (136-145); Total Protein 5.4 g/dL (6.6-8.7)
[2022-03-14] MEDS: digoxin 250 mcg/ml INJ 2 mL 600 MCG IVP (18:31)
[2022-03-14] MEDS: morphine 4 mg/mL SDV 1 mL 1 MG IVP ×3 (19:07→22:52)
[2022-03-14] MEDS: calcium gluconate 0.9% NaCL 1 GM/50 ML PREMIX IV (19:20)
[2022-03-15] VITALS (39 sets, daily range): BP systolic 79–133; BP diastolic 47–81; PULSE 84–123; RESP 18; TEMP 36.6–37.8; O2SAT 86–97; BMI 31.4
[2022-03-15] MEDS: digoxin 250 mcg/ml INJ 2 mL IVP ×2 (00:06→05:21)
[2022-03-15] MEDS: vancomycin 1,250 MG/250 ML PIGGYBACK 250 MG IV (01:00)
[2022-03-15] MEDS: morphine 4 mg/mL SDV 1 mL 1 MG IVP ×3 (01:18→07:11)
[2022-03-15] MEDS: metroNIDAZOLE IV 500 MG/100 ML PREMIX 100 MG IV ×3 (01:22→17:19)
[2022-03-15] MEDS: famotidine 20 mg/2 mL INJ IVP ×2 (04:25→17:19)
[2022-03-15 05:20] LABS: Basophils % 0.7 %; Eosinophils % 0.7 %; Hematocrit 29.1 % (42.0-52.0); Hemoglobin 9.5 g/dL (11.7-16.6); Lymphocytes # 0.6 10^3/uL (0.8-4.8); Lymphocytes % 41.3 %; Mean Corpuscular HGB Conc 32.6 g/dL (30.0-36.0); Mean Corpuscular Hemoglobin 29.8 pg (28.0-34.0); Mean Corpuscular Volume 91.2 fl (80-94); Mean Platelet Volume 13.3 fL (7.4-10.4); Monocytes # 0.1 10^3/uL (0.2-0.9); Monocytes % 9.8 %; Neutrophils % 46.8 %; Nucleated Red Blood Cells % 0 %; Platelet Count 33 10^3/cmm (130-400); Red Blood Count 3.19 10^6/uL (4.1-5.3); Red Cell Distribution Width 14.5 % (12.1-15.1); White Blood Count 1.4 10^3/uL (4.0-10.0)
--- NOTE | 2022-03-15 05:20 | PC.NURSE ---
Canceled nuc. med. test Nuc med called to verify that scan had been cancelled. This nurse checked the history and orders for pt and verified the scan was cancelled. The charge nurse (ZIGGY Swift) was consulted and agreed that the order had been cancelled.
[2022-03-15 05:41] LABS: Neutrophils # 0.67 10^3/uL (1.8-7.7)
[2022-03-15 05:44] LABS: Alanine Aminotransferase 60 U/L (0-41); Albumin Level 3.8 g/dL (3.5-5.2); Alkaline Phosphatase 86 IU/L (40-130); Anion Gap 15.1 (5-19); Aspartate Amino Transferase 61 U/L (0-40); Blood Urea Nitrogen 14 mg/dL (8-23); Calcium 7.8 mg/dL (8.5-10.5); Carbon Dioxide 21 mmol/L (22-29); Chloride 107 mmol/L (98-107); Globulin 1.2 g/dL (1.3-4.6); Glomerular Filtration Rate 96.1 mL/min (90-130); Glucose 107 mg/dL (65-115); Magnesium 1.9 mg/dL (1.7-2.3); Osmolality Calculated 289 mOsm/kg (285-295); Potassium 4.1 mmol/L (3.5-5.1); Sodium 139 mmol/L (136-145); Total Bilirubin 3.2 mg/dL (0.15-1.2)
[2022-03-15 07:47] LABS: Lipase 46 U/L (13-60)
[2022-03-15] MEDS: metoprolol tartrate 25 mg Tablet PO ×2 (08:10→09:37)
[2022-03-15] MEDS: cefepime 2,000 MG in sodium chloride 0.9% (plus) 50 ML 100 MG IV ×2 (08:10→20:22)
[2022-03-15] MEDS: doxycycline 100 mg Tablet PO ×2 (08:10→17:18)
[2022-03-15 09:14] LABS: Add Urine Microscopic? YES; Bacteria Urine B /hpf; Bilirubin Urine Neg (Negative); Blood Urine 3+ (Negative); Glucose Urine UA Norm (Normal); Ketones Urine 1+ (Negative); Leukocyte Esterase Urine Negative (Negative); Nitrate Urine Negative (Negative); Protein Urine Neg (Negative); RBC Urine 0-4 /hpf (0-2); Specific Gravity, Urine 1.015 (1.005-1.030); Squamous Epithelial Cell Urine 0-4 /hpf (0-5); Urine Appearance Hazy (CLEAR); Urine Color Amber (Yellow); Urobilinogen Urine Norm (Negative); WBC Urine 0-4 /hpf (0-5); pH Urine 5 (5-7)
[2022-03-15 09:15] LABS: Add Urine Culture? No; Amorphous Sediment Urine 1+ /hpf
[2022-03-15] MEDS: amiodarone 200 mg Tablet PO ×2 (09:37→17:18)
--- NOTE | 2022-03-15 11:08 | PC.CHAP ---
Pastoral Care Encounter/Spiritual Assessment Type of Contact [] Declined supervisor aircraft maintenance visit [] Patient/Family/Request visit [] Outpatient visit [] Follow-up visit [] Physician referral [] Code/Alert [x] Routine visit [] Staff referral [] Actively dying [] Patient sleeping [] Family support [] [] Out of room [] Palliative care [] [x] Receiving care in room [] Pre-surgical visit [] Trauma [] Long length of stay [x] ICU visit [x] Other: isolated Relational/Emotional Strength [] Patient feels connected with others/family/visitors/staff [] Distress [] Loneliness/isolation [] Abandonment Spirituality of Patient [] Person of Lin [] Attends Buddhism of their Lin [] Believes in Prayer [] Reads Bible or Zoroastrian materials [] There are Spiritual issues to be addressed Shirt Operator Interventions [x] Prayer [] Active listening [] Non-anxious presence [] Spiritual/emotional support [] Crisis/trauma care [] Spiritual counseling [] Bereavement support [] Provided bereavement packet [] Provided Bible/devotional materials [] Provided toy/stuffed animal, coloring book to patient or family member [] Provided Communion [] Anointing/[place] [] Salvation [x] Completed spiritual assessment [] Other: Impact on Illness or Injury [] Angry [] Fearful [] Anxious [] Often cries [] Exhaustion [] Unable to work [] Unable to attend catholic [] Unable to walk/stand [] Unable to read [] Unable to drive [] Unable to eat/drink [] Unable to sleep [] Unable to be with family [] Patient intubated [] Other: Summary Time spent with patient
--- NOTE | 2022-03-15 14:18 | PM.PN ---
Subjective Subjective: No acute event overnight. In last 24 hours patient received a digoxin load overnight. Today morning his heart rate is a lot better controlled. Running from 90-100 bpm. Patient is complaining of generalized body aches. Denies any nausea, vomiting. Otherwise has remained hemodynamically stable. Blood pressure better controlled. Documented urine output of 2 L. Vitals/I&O/Wt Last Vital Signs Temp 98.8 F 03/15/22 08:00 Pulse 93 03/15/22 12:00 Resp 18 03/15/22 07:11 BP 95/55 03/15/22 12:00 Pulse Ox 92 03/15/22 12:00 03/14/22 03/15/22 03/15/22 22:59 06:59 14:59 Intake Total 1063.946 / 3912.223 1405 / 5317.223 1932.742 / 1932.742 Output Total 300 / 750 1375 / 1375 Balance 763.946 / 3162.223 1405 / 4567.223 557.742 / 557.742 Weight last 48 hrs Weight 110.994 kg Weight 109.996 kg Weight 108.862 kg Physical Exam Narrative: General: No acute distress, AO x3, pallor present, icterus present, less dehydrated HEENT: PERRLA, pupils bilaterally equal and reactive Chest: Normal vesicular breath sounds, no added sounds, equal good air entry bilaterally CVS: S1-S2 irregularly irregular, tachycardia, no gallops, no rubs Abdomen: Soft, nontender, no organomegaly, bowel sounds present Neuro: No focal deficits, no facial deformity, AO x3, power 5/5 in all limbs Data : 03/15/22 04:50 03/15/22 04:50 Micro: Microbiology 03/13/22 11:17 Stool Lactoferrin - Final Stool C.difficile Toxin B Gene (PCR) - Final Occult Blood (FIT) - Final 03/13/22 20:32 MRSA Culture - Final Nose 03/13/22 16:09 Blood Culture - Preliminary Blood NEGATIVE TO DATE 03/13/22 16:05 Blood Culture - Preliminary Blood NEGATIVE TO DATE A&P Assessment and plan (1) Sepsis: Status: Acute (2) Atrial fibrillation with rapid ventricular response: Status: Acute (3) ALLY (acute kidney injury): Status: Acute (4) Liver failure: Status: Acute (5) Diarrhea: Status: Acute (6) Dehydration: Status: Acute (7) Shock: Status: Acute (8) Leukopenia: Status: Acute (9) Thrombocytopenia: Status: Acute (10) CLL (chronic lymphocytic leukemia): Status: Acute (11) Alcohol abuse: Status: Acute (12) Neutropenia: Status: Acute Plan 66-year-old gentleman past medical history of CLL on oral chemotherapy presents and hypotension, sepsis secondary to diarrhea in atrial fibrillation with rapid ventricular response found to be in acute kidney injury, liver injury. Sepsis: Present on admission. Ruled in because of tachycardia, hypotension on admission, endorgan damage with ALLY and liver dysfunction. Keep mean artery pressure over 65. Continue with continue with half NS and 50 mg sodium bicarbonate at 100 cc/h. Secondary to diarrhea: Patient is immunocompromised. Stool studies still pending. C. difficile negative. Blood cultures so far negative. Urine Legionella, bacterial antigen negative. Tick panel pending. Check respiratory viral panel including COVID-19 swab. As COVID-19 PCR sent out is still pending. Pro-Tay elevated, MRSA swab negative. Continue with cefepime, doxycycline and Flagyl. Stop vancomycin. This will cover for parasitic infection versus amoebic infection as well. Atrial fibrillation with rapid ventricular response: Rate controlled now. Most likely in setting of dehydration and sepsis. Switch to amiodarone 200 mg twice daily. Add metoprolol 50 mg twice daily. Patient got a digoxin load last night. Will check digoxin level at 6 PM. Hold off on anticoagulation given ongoing thrombocytopenia. Echocardiogram once heart rate is less than 100 Acute liver dysfunction: Most likely secondary to sepsis, dehydration and the chemotherapy oral pills. As per the patient has been drinking whiskey on a daily basis. Predominant diarrhea bilirubinemia Tylenol level, salicylate level within normal limits. INR normal, hepatitis panel, HIV negative. Liver ultrasound results appreciated. MRCP negative for cholecystitis. MELD score 13. Acute kidney injury: Resolved. Secondary to dehydration and sepsis along with use of nephrotoxic medications including acyclovir, Bactrim,umbrasilib. Medical reconciliation done for nephrotoxic drugs. Strict input output charting, daily weights. Monitor BMP daily for now. Neutropenia: History of CLL: Case discussed with oncology. Neulasta 40 mcg 1 dose. Neutropenic precautions. Replete phosphorus. Guarded prognosis. Analgesia: Tylenol 325 every 8 hourly, morphine 1 mg every 4 hours as needed Glycemic control: Not needed Nutrition: GI soft diet CODE STATUS: Full code PUD prophylaxis: Pepcid DVT prophylaxis: SCDs for DVT prophylaxis, hold off from medical prophylaxis given thrombocytopenia Continue with ICU care. Attestations Medical Necessity Statement*: Requires further hospitalization for management of sepsis, continued liver injury, resolving atrial fibrillation with rapid ventricular response in a patient who is immunocompromised, neutropenic fever Critical Care Time: The high probability of a clinically significant, sudden or life threatening deterioration of the patient's [cardiac,, renal, ID system GI required my full and direct attention, intervention and personal management. The critical care time is as shown. This time is in addition to time spent performing any reported procedures but includes the following: [x] Data and vital sign review and interpretation [x] Patient assessment, examination and intervention [x] Documentation [x] Medication orders and management Critical Care Time (min): 70 Coding Level of Care Code Acute Refractory Grinder Operator for g Fwd Diagnoses Sepsis A41.9 Atrial fibrillation with rapid ventricular response I48.91 ALLY (acute kidney injury) N17.9 Liver failure K72.90 Diarrhea R19.7 Dehydration E86.0 Shock R57.9 Leukopenia D72.819 Thrombocytopenia D69.6 CLL (chronic lymphocytic leukemia) C91.10 Alcohol abuse F10.10 Neutropenia D70.9
[2022-03-15 14:23] LABS: Lyme AB Screen <0.90 index
[2022-03-15 16:32] LABS: Adenovirus Not Detected (NOT DETECT); Chlamydia Pneumoniae Not Detected (NOT DETECT); Coronavirus 229E,HKU1,NL63,OC4 Not Detected (NOT DETECT); Human Metapneumovirus Not Detected (NOT DETECT); Human Rhinovirus/Enterovirus Not Detected (NOT DETECT); Influenza A Not Detected (NOT DETECT); Influenza A H1 Not Detected (NOT DETECT); Influenza A H1-2009 Not Detected (NOT DETECT); Influenza A H3 Not Detected (NOT DETECT); Influenza B Not Detected (NOT DETECT); Mycoplasma Pneumoniae Not Detected (NOT DETECT); Parainfluenza Virus Type 1 Not Detected (NOT DETECT); Parainfluenza Virus Type 2 Not Detected (NOT DETECT); Parainfluenza Virus Type 3 Not Detected (NOT DETECT); Parainfluenza Virus Type 4 Not Detected (NOT DETECT); Respiratory Syncytial Virus A Not Detected (NOT DETECT); Respiratory Syncytial Virus B Not Detected (NOT DETECT); SARS-COV-2 Not Detected (NOT DETECT)
[2022-03-15 18:41] LABS: Quest SARS-CoV-2 RNA NOT DETECTED (NOT DETECTED)
[2022-03-15] MEDS: metoprolol tartrate 25 mg Tablet 50 MG PO (20:31)
[2022-03-16] VITALS (37 sets, daily range): BP systolic 96–138; BP diastolic 51–94; PULSE 90–110; RESP 16–24; TEMP 36.6–36.9; O2SAT 87–97; BMI 30.2
[2022-03-16] MEDS: morphine 4 mg/mL SDV 1 mL 1 MG IVP (01:28)
[2022-03-16 01:33] LABS: Basophils % 0.4 %; Hematocrit 28.9 % (42.0-52.0); Hemoglobin 10.1 g/dL (11.7-16.6); Lymphocytes # 0.8 10^3/uL (0.8-4.8); Lymphocytes % 16.8 %; Mean Corpuscular HGB Conc 34.9 g/dL (30.0-36.0); Mean Corpuscular Hemoglobin 30.1 pg (28.0-34.0); Mean Platelet Volume 14.1 fL (7.4-10.4); Monocytes # 0.3 10^3/uL (0.2-0.9); Neutrophils # 3.51 10^3/uL (1.8-7.7); Neutrophils % 75.5 %; Nucleated Red Blood Cells % 0 %; Platelet Count 39 10^3/cmm (130-400); Red Blood Count 3.36 10^6/uL (4.1-5.3); Red Cell Distribution Width 13.8 % (12.1-15.1); White Blood Count 4.7 10^3/uL (4.0-10.0)
[2022-03-16] MEDS: metroNIDAZOLE IV 500 MG/100 ML PREMIX 100 MG IV (01:33)
[2022-03-16 02:00] LABS: Slide Review Slide Review Perform
[2022-03-16 02:18] LABS: Alanine Aminotransferase 55 U/L (0-41); Albumin Level 3.5 g/dL (3.5-5.2); Alkaline Phosphatase 91 IU/L (40-130); Anion Gap 14.1 (5-19); Aspartate Amino Transferase 57 U/L (0-40); Blood Urea Nitrogen 14 mg/dL (8-23); Calcium 7.8 mg/dL (8.5-10.5); Carbon Dioxide 24 mmol/L (22-29); Chloride 105 mmol/L (98-107); Globulin 1.6 g/dL (1.3-4.6); Glomerular Filtration Rate 83.9 mL/min (90-130); Glucose 107 mg/dL (65-115); Magnesium 1.8 mg/dL (1.7-2.3); Osmolality Calculated 291 mOsm/kg (285-295); Phosphorus 1.7 mg/dL (2.5-4.5); Potassium 3.1 mmol/L (3.5-5.1); Sodium 140 mmol/L (136-145); Total Protein 5.1 g/dL (6.6-8.7)
[2022-03-16 02:20] LABS: Vancomycin Trough < 4.0 ug/mL (10-15)
[2022-03-16 02:24] LABS: Procalcitonin 0.51 ng/mL (0-0.5)
[2022-03-16] MEDS: famotidine 20 mg/2 mL INJ IVP ×2 (04:47→17:16)
[2022-03-16] MEDS: amiodarone 200 mg Tablet PO ×2 (08:08→17:16)
[2022-03-16] MEDS: doxycycline 100 mg Tablet PO ×2 (08:08→17:16)
[2022-03-16] MEDS: cefepime 2,000 MG in sodium chloride 0.9% (plus) 50 ML 100 MG IV (08:09)
[2022-03-16] MEDS: metoprolol tartrate 25 mg Tablet 50 MG PO ×2 (08:09→21:57)
[2022-03-16] MEDS: loperamide 2 mg Capsule 4 MG PO (10:13)
--- NOTE | 2022-03-16 13:08 | PC.SOCIAL ---
IMM Update pg 2 of [facility] udpated and reviewed w/ patient. Copy provided and Copy dated, initialed and placed in chart.
[2022-03-16] MEDS: metroNIDAZOLE 500 MG Tablet PO ×2 (14:53→21:57)
--- NOTE | 2022-03-16 15:02 | P.PN_ITS ---
Subjective Subjective: No acute events overnight. Patient has remained hemodynamically stable and afebrile. Continues to remain on room air. T-max of 100 Fahrenheit yesterday afternoon 1 time last 24 hours. Continues to have loose bowel movements. 2 bowel movements today morning. Documented urine output of around 3 L. Vitals/I&O/Wt Last Vital Signs Temp 98.1 F 03/16/22 04:00 Pulse 104 H 03/16/22 14:00 Resp 18 03/16/22 04:00 BP 111/73 03/16/22 14:00 Pulse Ox 93 03/16/22 14:00 03/16/22 03/16/22 03/16/22 06:59 14:59 22:59 Intake Total 1098.333 / 4856.075 450 / 450 Output Total 500 / 2950 Balance 598.333 / 1906.075 450 / 450 Weight last 48 hrs Weight 107.048 kg Weight 110.994 kg Physical Exam Narrative: General: No acute distress, AO x3, pallor present, icterus present, less dehydrated HEENT: PERRLA, pupils bilaterally equal and reactive Chest: Normal vesicular breath sounds, no added sounds, equal good air entry bilaterally CVS: S1-S2 irregularly irregular, tachycardia, no gallops, no rubs Abdomen: Soft, nontender, no organomegaly, bowel sounds present Neuro: No focal deficits, no facial deformity, AO x3, power 5/5 in all limbs Data : 03/16/22 01:10 03/16/22 01:10 Micro: Microbiology 03/13/22 11:17 Stool Lactoferrin - Final Stool Enteric Pathogens (PCR) - Final Parasite Antigen Panel - Final C.difficile Toxin B Gene (PCR) - Final Occult Blood (FIT) - Final A&P Assessment and plan (1) Sepsis: Status: Acute (2) Atrial fibrillation with rapid ventricular response: Status: Acute (3) ALLY (acute kidney injury): Status: Acute (4) Liver failure: Status: Acute (5) Diarrhea: Status: Acute (6) Dehydration: Status: Acute (7) Shock: Status: Acute (8) Leukopenia: Status: Acute (9) Thrombocytopenia: Status: Acute (10) CLL (chronic lymphocytic leukemia): Status: Acute (11) Alcohol abuse: Status: Acute (12) Neutropenia: Status: Acute Plan 66-year-old gentleman past medical history of CLL on oral chemotherapy presents and hypotension, sepsis secondary to diarrhea in atrial fibrillation with rapid ventricular response found to be in acute kidney injury, liver injury. Sepsis: Present on admission. Ruled in because of tachycardia, hypotension on admission, endorgan damage with ALLY and liver dysfunction. Keep mean artery pressure over 65. Continue with continue with half NS and 50 mg sodium bicarbonate at 100 cc/h. Secondary to diarrhea: Patient is immunocompromised. Stool studies still pending. C. difficile negative. Blood cultures so far negative. Urine Legionella, bacterial antigen negative. Tick panel pending. Check respiratory viral panel including COVID-19 swab. As COVID-19 PCR sent out is still pending. Pro-Tay elevated, MRSA swab negative. Continue with cefepime, doxycycline and Flagyl. Stop vancomycin. This will cover for parasitic infection versus amoebic infection as well. Atrial fibrillation with rapid ventricular response: Rate controlled now. Most likely in setting of dehydration and sepsis. Switch to amiodarone 200 mg twice daily. Add metoprolol 50 mg twice daily. Patient got a digoxin load last night. Will check digoxin level at 6 PM. Hold off on anticoagulation given ongoing thrombocytopenia. Echocardiogram once heart rate is less than 100 Acute liver dysfunction: Most likely secondary to sepsis, dehydration and the chemotherapy oral pills. As per the patient has been drinking whiskey on a daily basis. Predominant diarrhea bilirubinemia Tylenol level, salicylate level within normal limits. INR normal, hepatitis panel, HIV negative. Liver ultrasound results appreciated. MRCP negative for cholecystitis. MELD score 13. Acute kidney injury: Resolved. Secondary to dehydration and sepsis along with use of nephrotoxic medications including acyclovir, Bactrim,umbrasilib. Medical reconciliation done for nephrotoxic drugs. Strict input output charting, daily weights. Monitor BMP daily for now. Neutropenia: History of CLL: Case discussed with oncology. Neulasta 40 mcg 1 dose. Neutropenic precautions. Replete phosphorus. Guarded prognosis. Analgesia: Tylenol 325 every 8 hourly, morphine 1 mg every 4 hours as needed Glycemic control: Not needed Nutrition: GI soft diet CODE STATUS: Full code PUD prophylaxis: Pepcid DVT prophylaxis: SCDs for DVT prophylaxis, hold off from medical prophylaxis given thrombocytopenia Continue with ICU care. Plan for the day: Continue to follow blood cultures. Stop IV antibiotics. Switch to oral Cipro and Flagyl. Respiratory viral panel, COVID-19 PCR, stool studies negative. Loperamide 4 mg 4 times daily as needed. Replete potassium and phosphate. Check Continue with IV hydration. Neutropenia resolved. Leukopenia improving. Received 1 dose of Neupogen yesterday. Continue with oral amiodarone and metoprolol. Digoxin levels appreciated. Monitor renal functions and CMP daily. Transfer to [facility]. Discharge planning: Plan to discharge within next 24 hours if patient continues to improve, remains hemodynamically stable on oral hydration for up to 2 to 3 L, however antibiotics for next 3 to 4 days with advised to repeat his labs within next 1 week. Attestations Medical Necessity Statement*: Requires further hospitalization for management of resolving sepsis secondary to gastroenteritis the patient is immu nocompromised, acute liver injury Time Spent in Patient Care: Greater than 35 minutes Coding Level of Care Code Acute Bit Welder for [facility] Fwd Diagnoses Sepsis A41.9 Atrial fibrillation with rapid ventricular response I48.91 ALLY (acute kidney injury) N17.9 Liver failure K72.90 Diarrhea R19.7 Dehydration E86.0 Shock R57.9 Leukopenia D72.819 Thrombocytopenia D69.6 CLL (chronic lymphocytic leukemia) C91.10 Alcohol abuse F10.10 Neutropenia D70.9
--- NOTE | 2022-03-16 17:38 | PC.NURSE ---
Patient arrived to floor from ICU, this nurse assumed care of patient this evening. No c/o pain, at bedside, OOBTC without difficulty, VSS, AAOx4. Placed in reverse isolation and chemo precautions. Room clean and clutter free with call light in reach. No needs at this time, no new events during time of care. Will report to oncoming nurse at shift change at bedside.
[2022-03-16] MEDS: ciprofloxacin 500 mg Tablet PO (21:57)
[2022-03-17] VITALS: BP 126/80; PULSE 95; RESP 17; TEMP 36.5; O2SAT 98
[2022-03-17 04:00] VITALS: BP 120/81; PULSE 86; RESP 18; TEMP 36.8; O2SAT 97
[2022-03-17] MEDS: famotidine 20 mg/2 mL INJ IVP (05:00)
[2022-03-17 05:17] LABS: Basophils % 0.7 %; Eosinophils % 0.2 %; Hematocrit 30.7 % (42.0-52.0); Lymphocytes # 1.5 10^3/uL (0.8-4.8); Lymphocytes % 24.1 %; Mean Corpuscular HGB Conc 35.8 g/dL (30.0-36.0); Mean Corpuscular Hemoglobin 30.1 pg (28.0-34.0); Mean Corpuscular Volume 83.9 fl (80-94); Mean Platelet Volume 14.5 fL (7.4-10.4); Monocytes # 0.4 10^3/uL (0.2-0.9); Monocytes % 6.4 %; Neutrophils # 4.15 10^3/uL (1.8-7.7); Neutrophils % 68.3 %; Nucleated Red Blood Cells % 0 %; Platelet Count 55 10^3/cmm (130-400); Red Blood Count 3.66 10^6/uL (4.1-5.3); Red Cell Distribution Width 13.8 % (12.1-15.1); White Blood Count 6.1 10^3/uL (4.0-10.0)
[2022-03-17 05:48] LABS: Alanine Aminotransferase 64 U/L (0-41); Albumin Level 3.7 g/dL (3.5-5.2); Alkaline Phosphatase 105 IU/L (40-130); Anion Gap 12.9 (5-19); Aspartate Amino Transferase 62 U/L (0-40); Blood Urea Nitrogen 14 mg/dL (8-23); Calcium 8.1 mg/dL (8.5-10.5); Carbon Dioxide 26 mmol/L (22-29); Chloride 108 mmol/L (98-107); Globulin 1.6 g/dL (1.3-4.6); Glomerular Filtration Rate 112.1 mL/min (90-130); Glucose 113 mg/dL (65-115); Osmolality Calculated 299 mOsm/kg (285-295); Sodium 144 mmol/L (136-145); Total Bilirubin 1.9 mg/dL (0.15-1.2); Total Protein 5.3 g/dL (6.6-8.7)
[2022-03-17 05:49] LABS: Slide Review Slide Review Perform
[2022-03-17 06:00] VITALS: PULSE 95
[2022-03-17 06:02] LABS: Potassium 2.9 mmol/L (3.5-5.1)
[2022-03-17] MEDS: potassium chloride ER 20 mEq Tablet 60 MEQ PO (06:41)
[2022-03-17 08:00] VITALS: BP 125/81; PULSE 87; RESP 16; TEMP 36.3; O2SAT 97
[2022-03-17] MEDS: metoprolol tartrate 25 mg Tablet 50 MG PO (10:10)
[2022-03-17] MEDS: ciprofloxacin 500 mg Tablet PO (10:10)
[2022-03-17] MEDS: amiodarone 200 mg Tablet PO (10:10)
[2022-03-17] MEDS: doxycycline 100 mg Tablet PO (10:10)
[2022-03-17] MEDS: metroNIDAZOLE 500 MG Tablet PO (10:20)
--- NOTE | 2022-03-17 11:10 | P.DS_ITS ---
Discharge Providers Date of Admission: 03/13/22 16:55 Date of Discharge: March 17, 2022 Attending Provider at Admission: Db Gavin MD Attending Provider at Discharge: Db Gavin MD Diagnoses at Discharge Discharge Diagnosis (1) Sepsis: Status: Acute (2) Atrial fibrillation with rapid ventricular response: Status: Acute (3) ALLY (acute kidney injury): Status: Acute (4) Liver failure: Status: Acute (5) Diarrhea: Status: Acute (6) Dehydration: Status: Acute (7) Shock: Status: Acute (8) Leukopenia: Status: Acute (9) Thrombocytopenia: Status: Acute (10) CLL (chronic lymphocytic leukemia): Status: Acute (11) Alcohol abuse: Status: Acute Permanent problem details: 1 glass of whiskey daily (12) Neutropenia: Status: Acute Reason for Visit Reason for Visit: DI, Vomitting, chills Hospital Course Hospital Course Julian Lundy Jr is a 66 year old male who is traveling in from [place] and was camping for last 3 days at [facility].? Patient has past medical history of CLL on oral chemotherapy with umbralisib and Venclexta oralpills daily.? As per the patient when he reached the [place] he started having explosive multiple frequent amount of diarrhea along with gradual weakness and chills.? When they reached back to [place] today he came directly to the ER because of worsening weakness along with dizziness.? In the ER he was found to be in atrial fibrillation with rapid ventricular response with heart rate running in 140s to 150s.? He was found to be in systolic blood pressure of 60 mmHg.? He was given 1 L bolus of IV fluids and plan was to cardiovert but as his blood pressures improved he was started on esmolol drip. Patient states he has a history of intermittent atrial fibrillation in the past for which he received ablation and since then he has not been on any rhythm control or anticoagulation.? He states his baseline platelet count is around 110-300,000 with white count of around 2-4.? He declined of having any knowledge of ALLY on liver dysfunction.? He denies of having any bleeding.? Denies of any decline in urine output, chest pain, nausea, vomiting, recent sick contacts, known exposure to ticks.? He has received modern a COVID-vaccine with overall 2 boosters.? Last dose around 2 weeks ago. On examination patient's heart rate is running from 1 10-1 30, atrial fibrillation.? He is on esmolol drip with systolic blood pressure of 101 mmHg. He was admitted to the ICU for further evaluation and management. On admission patient was in acute kidney injury, hepatic injury, extreme dehydration, leukopenia thrombocytopenia along with atrial fibrillation with rapid ventricular response and shock. It is believed his symptoms are most likely secondary to overt dehydration while he was out camping in heat and having diarrhea along with multiple chemotherapy and prophylactic medications which can cause both liver and kidney dysfunction. His home chemotherapy and prophylactic medications were withheld. He was started on treatment with IV hydration. For atrial fibrillation with rapid ventricular response he was started on amiodarone drip. Medications for atrial fibrillation were very limited given his low blood pressures and acute k idney injury. At start he was started on broad-spectrum antibiotics given his history of immunocompromisation from oral chemotherapy. During hospitalization his blood cultures, COVID-19 PCR, respiratory viral panel, MRSA swab, urinalysis, stool studies came back negative. His tick panel is still pending. Patient has remained afebrile for more than 72 hours. His kidney functions improved within 24 hours. His atrial fibrillation with rapid ventricular response resolved as well and he has been back to rate controlled on oral amiodarone after he was given digoxin loading dose. His liver functions also improved gradually and are trending down. He did develop neutropenia during hospitalization secondary to CLL for which he required 1 dose of Neupogen. Neutropenia since then has resolved. For liver dysfunction patient underwent liver ultrasound which is concerning for a possible cholecystitis which is ruled out by MRCP. He has been discharged in hemodynamically stable condition with advised to maintain his oral hydration up to 2 to 3 L daily. He is advised not to take his home chemotherapy and prophylactic medications for now. He is advised to recheck his CBC, CMP in next 1 week and follow-up with his primary oncologist for reinitiation of medications as deemed necessary at that time. He is to take oral antibiotics for next 3 days. Physical Exam Narrative: General: No acute distress, AO x3, pallor present, icterus present, dehydration has resolved HEENT: PERRLA, pupils bilaterally equal and reactive Chest: Normal vesicular breath sounds, no added sounds, equal good air entry bilaterally CVS: S1-S2 irregularly irregular, tachycardia, no gallops, no rubs Abdomen: Soft, nontender, no organomegaly, bowel sounds present Neuro: No focal deficits, no facial deformity, AO x3, power 5/5 in all limbs Discharge Data Studies Completed and Pending Completed Studies During Hospitalization Category Date Time Status CT abdomen pelvis wo con [id number] Urgent Cat Scan 03/13/22 17:20 Completed XR chest 1V portable [id number] Stat Exams 03/13/22 14:29 Completed MR MRCP [id number] Urgent MRI 03/14/22 13:00 [place] liver [id number] Routine Ultrasound 03/14/22 17:24 Completed Pending at discharge Category Date Time Status Blood Culture Stat Lab 03/13/22 16:09 Results Tick Panel Stat Lab 03/13/22 17:45 Results Radiology Impressions Chest X-Ray 03/13/22 14:29 Impression: Atherosclerosis. Abdomen/Pelvis CT 03/13/22 17:20 IMPRESSION: 1. No acute abdominal findings. Cholelithiasis. 2. Splenomegaly. Probable hepatic steatosis. 3. Suspicion of areas of ankylosis of the SI joints, therefore clinical correlation recommended as to the likelihood of ankylosing spondylitis. Other findings detailed above. Cholangiopancreatography MRI 03/14/22 13:00 Impression: 1. Dense cholelithiasis is unchanged. No evidence of acute cholecystitis. No significant gallbladder wall thickening or pericholecystic fluid. 2. Normal common bile duct. No intrahepatic biliary ductal dilatation. No visualized choledocholithiasis. 3. No evidence of pancreatic head mass or lesion. 4. Hepatomegaly with diffuse fatty infiltration. Splenomegaly. 5. No other significant findings. Liver Ultrasound 03/14/22 17:24 IMPRESSION: 1. Cholelithiasis and a small amount of gallbladder sludge. 2. Clinical setting this may represent acute cholecystitis. On the recent CT of 03/13/2022 there was no adjacent inflammation suggesting acute cholecystitis. 3. No bile duct dilatation. 4. Moderate hepatomegaly and hepatic steatosis. Microbiology 03/13/22 11:17 Stool Stool Lactoferrin - Final 03/13/22 11:17 Stool Enteric Pathogens (PCR) - Final 03/13/22 11:17 Stool Parasite Antigen Panel - Final 03/13/22 11:17 Stool C.difficile Toxin B Gene (PCR) - Final 03/13/22 11:17 Stool Occult Blood (FIT) - Final 03/13/22 20:32 Nose MRSA Culture - Final 03/13/22 16:09 Blood Blood Culture - Preliminary NEGATIVE TO DATE 03/13/22 16:05 Blood Blood Culture - Preliminary NEGATIVE TO DATE 03/13/22 20:41 Urine Kidney Bacterial Antigens - Final 03/13/22 20:41 Urine,Voided Legionella Urinary Antigen - Final Laboratory Results WBC 6.1 10^3/uL (4.0-10.0) 03/17/22 04:05 RBC 3.66 10^6/uL (4.1-5.3) L 03/17/22 04:05 Hgb 11.0 g/dL (11.7-16.6) L 03/17/22 04:05 Hct 30.7 % (42.0-52.0) L 03/17/22 04:05 MCV 83.9 fl (80-94) 03/17/22 04:05 MCH 30.1 pg (28.0-34.0) 03/17/22 04:05 MCHC 35.8 g/dL (30.0-36.0) 03/17/22 04:05 RDW 13.8 % (12.1-15.1) 03/17/22 04:05 Plt Count 55 10^3/cmm (130-400) L D 03/17/22 04:05 MPV 14.5 fL (7.4-10.4) H 03/17/22 04:05 Neut % (Auto) 68.3 % 03/17/22 04:05 Lymph % (Auto) 24.1 % 03/17/22 04:05 [place] % (Auto) 6.4 % 03/17/22 04:05 Eos % (Auto) 0.2 % 03/17/22 04:05 Baso % (Auto) 0.7 % 03/17/22 04:05 Neut # (Auto) 4.15 10^3/uL (1.8-7.7) 03/17/22 04:05 Lymph # (Auto) 1.5 10^3/uL (0.8-4.8) 03/17/22 04:05 [place] # (Auto) 0.4 10^3/uL (0.2-0.9) 03/17/22 04:05 Eos # (Auto) 0.0 10^3/uL (0.0-0.8) 03/17/22 04:05 Baso # (Auto) 0.0 10^3/uL (0.0-0.1) 03/17/22 04:05 Nucleated RBC % (auto) 0 % 03/17/22 04:05 Total Counted 100 (0-100) 03/13/22 14:25 Atypical Lymphs % Not Reportable 03/13/22 14:25 Absolute Neutrophils 1.5 10^3/cmm (1.4-6.5) 03/13/22 14:25 Segmented Neutrophils 47 % 03/13/22 14:25 Abs Segm Neuts (Man) 0.9 10/cmm (1.6-7.1) L 03/13/22 14:25 Band Neutrophils 31.0 % 03/13/22 14:25 Abs Band Neuts (Man) 0.6 10^3/cmm (0.0-1.2) 03/13/22 14:25 Lymphocytes (Manual) 10 % 03/13/22 14:25 Monocytes (Manual) 12.0 % 03/13/22 14:25 Absolute Monocytes 0.2 10^3/cmm (0.1-0.6) 03/13/22 14:25 Eosinophils (Manual) 0 % 03/13/22 14: Absolute Eosinophils 0.0 10^3/cmm (0.0-0.7) 03/13/22 14:25 Basophils (Manual) Not Reportable 03/13/22 14:25 Nucleated RBCs # 0.0 /100WBC 03/17/22 04:05 Toxic Vacuolation Trace 03/13/22 14:25 Dohle Bodies 1+ H 03/13/22 14:25 Platelet Estimate Decreased (Normal) 03/13/22 14:25 Giant Platelets 1+ H 03/13/22 14:25 Macrocytosis 1+ H 03/13/22 14:25 ESR 2 mm/hr (0-10) 03/13/22 20:56 PT 15.00 SECONDS (12.1-14.9) H 03/13/22 17:45 INR 1.15 (0.8-1.2) 03/13/22 17:45 Sodium 144 mmol/L (136-145) 03/17/22 04:05 Potassium 2.9 mmol/L (3.5-5.1) L 03/17/22 04:05 Chloride 108 mmol/L (98-107) H 03/17/22 04:05 Carbon Dioxide 26 mmol/L (22-29) 03/17/22 04:05 Anion Gap 12.9 (5-19) 03/17/22 04:05 BUN 14 mg/dL (8-23) 03/17/22 04:05 Creatinine 0.7 mg/dL (0.7-1.2) 03/17/22 04:05 GFR Calculation 112.1 mL/min (90-130) 03/17/22 04:05 Glucose 113 mg/dL (65-115) 03/17/22 04:05 Estimat Average Glucose 120 03/14/22 05:29 Hemoglobin A1c 5.8 % (4.0-6.0) 03/14/22 05:29 Calculated Osmolality 299 mOsm/kg (285-295) H 03/17/22 04:05 Lactic Acid 2.3 mmol/L (0.5-2.2) H 03/13/22 16:05 Lactate 1.1 mmol/L (0.5-2.2) 03/14/22 10:00 Calcium 8.1 mg/dL (8.5-10.5) L 03/17/22 04:05 Phosphorus 2.0 mg/dL (2.5-4.5) L 03/17/22 04:05 Magnesium 2.0 mg/dL (1.7-2.3) 03/17/22 04:05 Iron 41 ug/dL (59-158) L 03/13/22 17:45 TIBC 187 mcg/dl 03/13/22 17:45 % Saturation 21.9 % (20-50) 03/13/22 17:45 Unsat Iron Binding 146 ug/dL (112-347) 03/13/22 17:45 Total Bilirubin 1.9 mg/dL (0.15-1.2) H 03/17/22 04:05 Direct Bilirubin 1.10 mg/dL (0.00-0.30) H 03/14/22 05:29 Indirect Bilirubin 2.80 03/14/22 05:29 GGT 67 U/L (8-61) H 03/14/22 05:29 AST 62 U/L (0-40) H 03/17/22 04:05 ALT 64 U/L (0-41) H 03/17/22 04:05 Alkaline Phosphatase 105 IU/L (40-130) 03/17/22 04:05 Creatine Kinase 199 U/L (39-308) 03/14/22 05:29 Troponin T Baseline 47 ng/L (0-15) H 03/13/22 14:25 Troponin T 120 Minute 33.46 ng/L (0-15) H 03/13/22 16:05 Delta Troponin T -13.54 ABS# (0-10) L 03/13/22 16:05 Troponin T Hi Sens 6Hr 26.64 ng/L (0-15) H 03/13/22 20:47 Troponin T Hi Sens 6Hr Delta -20.36 ng/L (0-12) L 03/13/22 20:47 C-Reactive Protein 109.4 mg/L (0.0-4.9) H 03/13/22 18:50 Total Protein 5.3 g/dL (6.6-8.7) L 03/17/22 04:05 Albumin 3.7 g/dL (3.5-5.2) 03/17/22 04:05 Globulin 1.6 g/dL (1.3-4.6) 03/17/22 04:05 Triglycerides 172 mg/dL (0-150) H 03/14/22 05:29 Cholesterol 90 mg/dL (0-200) 03/14/22 05:29 LDL Cholesterol, Calc 31 mg/dL (50-129) L 03/14/22 05:29 Total VLDL Cholesterol 34 mg/dL (0-30) H 03/14/22 05:29 HDL Cholesterol 25 mg/dL (60-100) L 03/14/22 05:29 Cholesterol/HDL Ratio 3.60 mg/dL (1.0-5.00) 03/14/22 05:29 Lipase 46 U/L (13-60) 03/15/22 04:50 Vitamin B12 446 pg/mL (232-1245) 03/13/22 17:45 Folate > 20.0 ng/mL (4.5-32.2) 03/13/22 18:50 Procalcitonin 0.51 ng/mL (0-0.5) H 03/16/22 01:10 TSH 3.08 uIU/mL (0.27-4.20) 03/13/22 17:45 Urine Color [place] (Yellow) 03/15/22 08:29 Urine Appearance Hazy (CLEAR) A 03/15/22 08:29 Urine pH 5 (5-7) 03/15/22 08:29 Ur Specific [place] 1.015 (1.005-1.030) 03/15/22 08:29 Urine Protein Neg (Negative) 03/15/22 08:29 Urine Glucose (UA) Norm (Normal) 03/15/22 08:29 Urine Ketones 1+ (Negative) H 03/15/22 08:29 Urine Blood 3+ (Negative) H 03/15/22 08:29 Urine Nitrate Negative (Negative) 03/15/22 08:29 Urine Bilirubin Neg (Negative) 03/15/22 08:29 Urine Urobilinogen Norm mg/dL (Negative) 03/15/22 08:29 Ur Leukocyte Esterase Negative (Negative) 03/15/22 08:29 Urine RBC 0-4 /hpf (0-2) H 03/15/22 08:29 Urine WBC 0-4 /hpf (0-5) H 03/15/22 08:29 Ur Eosinophil Smear 0 (0-0) 03/13/22 20:41 Ur Squamous Epith Cells 0-4 /hpf (0-5) H 03/15/22 08:29 Amorphous Sediment 1+ /hpf 03/15/22 08:29 Urine Bacteria B /hpf (NONE) 03/15/22 08:29 Hyaline Casts 0-4 /lpf H 03/13/22 20:41 Coarse Granular Casts 0-4 /lpf H 03/13/22 20:41 Urine Mucus 2+ /hpf 03/13/22 20:41 Urine Eosinophils No eosinophils seen 03/13/22 20:41 Ur Random Sodium 40 mmol/L 03/13/22 20:41 Ur Random Potassium 60 mmol/L 03/13/22 20:41 Ur Random Chloride 26 mmol/L 03/13/22 20:41 Urine Creatinine 207 mg/dL (39-259) 03/13/22 20:41 Nasal Influ A H1 2008 PCR Not detected (NOT DETECT) 03/15/22 14:25 RSV Nasal Swab Cancelled 03/15/22 14:25 RSV Nasal Swab Int Cntl Cancelled 03/15/22 14:25 Vancomycin Trough < 4.0 ug/mL (10-15) L 03/16/22 01:10 Salicylates < 0.3 mg/dL (3-10) L 03/13/22 17:45 Urine Opiates Screen Negative ng/mL (Negative) 03/13/22 20:41 Acetaminophen < 5.0 ug/mL (10-30) L 03/13/22 17:45 Ur Barbiturates Screen Negative ng/mL (Negative) 03/13/22 20:41 Ur Phencyclidine Scrn Negative ng/mL (Negative) 03/13/22 20:41 Ur Amphetamines Screen Negative ng/mL (Negative) 03/13/22 20:41 U Benzodiazepines Scrn Negative ng/mL (Negative) 03/13/22 20:41 Urine Cocaine Screen Negative ng/mL (Negative) 03/13/22 20:41 U Marijuana (THC) Screen Negative ng/mL (Negative) 03/13/22 20:41 Ethyl Alcohol < 10 mg/dL (0-10) 03/13/22 17:45 Adenovirus (PCR) Cancelled 03/15/22 14:25 Adenovirus (PCR) Not detected (NOT DETECT) 03/15/22 14:25 Lyme Ab (Western Blot) <0.90 index 03/13/22 17:45 C. pneumoniae DNA (PCR) Not detected (NOT DETECT) 03/15/22 14:25 Coronavirus 229E (PCR) Not detected (NOT DETECT) 03/15/22 14:25 Hepatitis A IgM Ab Non-reactive (Nonreactive) 03/13/22 17:45 Hep Bs Antigen Non-reactive (Nonreactive) 03/13/22 17:45 Hep Bs Antibody 3.5 (11.5-1000) L 03/13/22 17:45 Hep B Core Total Ab Non-reactive (Nonreactive) 03/13/22 17:45 Hepatitis C Antibody Non-reactive (Nonreactive) 03/13/22 17:45 HIV 1&2 Ab & HIV 1 Ag Non-reactive (Non-Reactiv) 03/13/22 17:45 HIV 1&2 Antibody Non-reactive (Non-Reactiv) 03/13/22 17:45 Human Metapneumovir PCR Cancelled 03/15/22 14:25 Human Metapneumovir PCR Not detected (NOT DETECT) 03/15/22 14:25 Influenza A (RT-PCR) Cancelled 03/15/22 14:25 Influenza A (H1) PCR Cancelled 03/15/22 14:25 Influenza A (H1) PCR Not detected (NOT DETECT) 03/15/22 14:25 Influenza A (H3) PCR Cancelled 03/15/22 14:25 Influenza A (H3) PCR Not detected (NOT DETECT) 03/15/22 14:25 Influenza Type A Ag Negative (Negative) 03/13/22 20:41 Influenza Type A (PCR) Not detected (NOT DETECT) 03/15/22 14:25 Influenza Type B Ag Negative (Negative) 03/13/22 20:41 Influenza B (RT-PCR) Cancelled 03/15/22 14:25 Influenza Type B (PCR) Not detected (NOT DETECT) 03/15/22 14:25 M. pneumoniae (PCR) Not detected (NOT DETECT) 03/15/22 14:25 Parainfluenzae Type 1 Cancelled 03/15/22 14:25 Parainfluenza 1 (PCR) Not detected (NOT DETECT) 03/15/22 14:25 Parainfluenzae Type 2 Cancelled 03/15/22 14:25 Parainfluenza 2 (PCR) Not detected (NOT DETECT) 03/15/22 14:25 Parainfluenzae Type 3 Cancelled 03/15/22 14:25 Parainfluenza 3 (PCR) Not detected (NOT DETECT) 03/15/22 14:25 Parainfluenza 4 (PCR) Not detected (NOT DETECT) 03/15/22 14:25 RSV Ab Comment Cancelled 03/15/22 14:25 RSV Type A (PCR) Not detected (NOT DETECT) 03/15/22 14:25 RSV Type B (PCR) Not detected (NOT DETECT) 03/15/22 14:25 Rhinovirus (PCR) Cancelled 03/15/22 14:25 Entero/Rhino (PCR) Not detected (NOT DETECT) 03/15/22 14:25 SARS-CoV-2 (PCR) Not detected (NOT DETECT) 03/15/22 14:25 SARS-CoV-2 RNA (RT-PCR) Not detected (NOT DETECTED) 03/13/22 18:02 SARS-CoV-2 Ag (Rapid) Negative (Negative) 03/13/22 18:02 Vitals Last Vital Signs Temp 97.3 F L 03/17/22 08:00 Pulse 87 03/17/22 08:00 Resp 16 03/17/22 08:00 BP 125/81 03/17/22 08:00 Pulse Ox 97 03/17/22 08:00 Discharge Plan Discharge Patient Disposition: Home Condition: Stable Prescriptions: New metoprolol tartrate 25 mg Tablet 50 mg PO BID@0900,2099 30 Days Qty: 120 0RF ciprofloxacin HCl 500 mg Tablet 500 mg PO BID@0900,2100 3 Days Qty: 6 0RF loperamide 2 mg Capsule 4 mg PO QID PRN (Reason: Diarrhea) Qty: 16 0RF doxycycline monohydrate 100 mg Tablet 100 mg PO BID Qty: 6 0RF amiodarone [Pacerone] 200 mg Tablet See Taper mg PO BID Qty: 36 0RF Taper: amiodarone 400bid to 200daily 200 mg Twice A Day for 3 Days and 0 Hour 200 mg Daily for 30 Days and 0 Hour metronidazole 500 mg Tablet 500 mg PO TID 3 Days Qty: 9 0RF Continued famotidine 40 mg tablet 40 mg PO QAM 0RF aspirin 81 mg Tablet,Delayed Release (Dr/Ec) 81 mg PO QAM Qty: 30 0RF Held losartan 50 mg tablet 50 mg PO BEDTIME 0RF Hold Instructions: Resume on 03/28/22. atorvastatin 80 mg tablet 80 mg PO QAM 0RF Hold Instructions: Resume on 03/28/22. sulfamethoxazole-trimethoprim 400-80 mg tablet 1 tab PO QAM 0RF Hold Instructions: Resume on 03/28/22. acyclovir 800 mg tablet 800 mg PO Q12H 0RF Hold Instructions: Resume on 03/28/22. Venclexta 100 mg tablet 400 mg PO BEDTIME 0RF Hold Instructions: Resume on 03/28/22. umbralisib 200 mg Tablet 800 mg PO QAM 0RF Hold Instructions: Resume on 03/28/22. Discontinued amlodipine 5 mg tablet 5 mg PO QAM 0RF Discharge Orders: Discharge Order (Routine); Ordered 03/17/22 Ordered By: Db Gavin Discharge Diet: Usual diet and As Directed Discharge Activity: Resume usual activity and Increase activity as tolerated Patient Instructions: Opioid Safety Activity Restrictions/Additional Instructions: Please do not take your usual oral chemotherapy and oral prophylactic medications for next 10 days. Do not take amlodipine or atorvastatin for now. Take amiodarone 200 mg twice daily for next 3 days followed by 200 mg daily going forward. Please follow-up with your oncologist or primary care provider within next 1 week for repeat CBC and CMP. Please maintain oral hydration with 2 to 3 L of liquid daily which should include at least 1 L of Gatorade daily. You will be on 3 different antibiotics for next 3 days which include ciprofloxacin twice daily, Flagyl 3 times a day and doxycycline twice daily. Please abstain from alcohol use as much as possible. Discharge Attestations Time Spent in Discharge Care*: greater than 30 min Specific Discharge Activities: educating patient, discussing with rifle case repairer/social workers/dc planners, documenting/other paperwork and evaluating patient/reviewing data Status at Discharge: Cognitive status at discharge: cognitively intact , Behavioral status at discharge: cooperative , Functional status at discharge: independent ambulation , Overall status at discharge: patient is back to baseline Quality Metrics Clinical Quality Measures [ No reported AMI, CVA or VTE this stay] Coding Level of Care Code Acute Chg FW DC note Diagnoses Sepsis A41.9 Atrial fibrillation with rapid ventricular response I48.91 ALLY (acute kidney injury) N17.9 Liver failure K72.90 Diarrhea R19.7 Dehydration E86.0 Shock R57.9 Leukopenia D72.819 Thrombocytopenia D69.6 CLL (chronic lymphocytic leukemia) C91.10 Alcohol abuse F10.10 Neutropenia D70.9
[2022-03-17 12:00] VITALS: BP 114/79; PULSE 96; RESP 16; TEMP 36.4; O2SAT 96
[2022-03-17 14:31] VITALS: BP 114/79; PULSE 96; RESP 16; TEMP 36.4; O2SAT 96
[2022-03-21 18:32] LABS: RMSF IGG NOT DETECTED; RMSF IGM NOT DETECTED
[2022-03-21 22:14] LABS: E. Chaffeensis AB IGG <1:64; E. Chaffeensis AB IGM <1:20
== END 2022-03-17 14:32 | disposition home or self-care (01) | DRG 871 ==
LOC: ER 17:26 → ICU 18:11 → MEDSURG 03-16 15:26
PROVIDERS: Admitting Provider Student in an Organized Health Care Education/Training Program; Emergency Provider Family Medicine; Visit Provider Student in an Organized Health Care Education/Training Program
DX: A41.9 Sepsis, unspecified organism (principal); K72.00 Acute and subacute hepatic failure without coma; C91.10 Chronic lymphocytic leukemia of B-cell type not having achieved remission; N17.9 Acute kidney failure, unspecified; D84.821 Immunodeficiency due to drugs; I48.91 Unspecified atrial fibrillation; F10.10 Alcohol abuse, uncomplicated; E86.0 Dehydration; Z79.899 Other long term (current) drug therapy; I95.9 Hypotension, unspecified; T45.1X5A Adverse effect of antineoplastic and immunosuppressive drugs, initial encounter; Z79.82 Long term (current) use of aspirin
CPT/HCPCS: 36415; 71045; 74176; 74181; 76705; 80053; 80061; 80202; 80306; 80307; 81001; 82247; 82248; 82274; 82436; 82550; 82570; 82607; 82746; 82977; 83036; 83540; 83550; 83605; 83630; 83690; 83735; 84100; 84133; 84145; 84300; 84443; 84484; 85007; 85025; 85610; 85651; 85999; 86140; 86403; 86618; 86666; 86705; 86706; 86709; 86757; 86803; 87040; 87340; 87426; 87449; 87486; 87493; 87506; 87581; 87633; 87635; 87641; 87804; 87806; 93005; 94664; 96365; 96366; 96367; 96372; 96375; 99285; J0282; J0610; J0692; J1160; J1442; J2270; J2405; J3370; J3475; J3490; J7030; J7040; J7060; P9047; S0030